=== PATIENT | female | born 1995 | race Caucasian/White ===

== ENCOUNTER 2023-10-04 10:28 | Outpatient (RCR) | payer BC, SELFPAY ==
[2023-10-04 10:45] VITALS: BP 131/75; PULSE 79
== END 2024-01-02 23:59 | disposition home or self-care (01) ==
LOC: ANHOBOP 10:28
PROVIDERS: Visit Provider Advanced Practice Midwife
DX: O16.3 Unspecified maternal hypertension, third trimester (principal); Z3A.36 36 weeks gestation of pregnancy
CPT/HCPCS: 59025

== ENCOUNTER 2023-10-17 17:23 | Inpatient (IN) | payer BC, SELFPAY ==
[2023-10-17] VITALS (48 sets, daily range): BP systolic 102–161; BP diastolic 70–93; PULSE 68–93; TEMP 36.9; O2SAT 97–100; BMI 27.3
[2023-10-17 18:09] LABS: Basophils Percent Auto 0.3 % (0.2-1.2); Eosinophils Absolute Auto 0.1 K/mm3 (0-0.3); Hematocrit 37.4 % (37.0-47.0); Hemoglobin 12.5 g/dL (12.0-15.0); Immature Granulocyte Absolute 0.11 K/mm3 (0.00-0.031); Immature Granulocyte Percent A 0.9 % (0-0.5); Lymphocytes Absolute Auto 2.31 K/mm3 (0.9-3.2); Lymphocytes Percent Auto 18.5 % (18.3-44.2); Mean Corpuscular HGB Conc 33.4 g/dl (32-36); Mean Corpuscular Hemoglobin 30.1 pg (26-34); Mean Corpuscular Volume 90.1 fl (80-100); Mean Platelet Volume 12.6 fl (7.4-10.4); Monocytes Absolute Auto 0.6 K/mm3 (0.1-0.6); Neutrophils Absolute Auto 9.3 K/mm3 (1.3-6.7); Neutrophils Percent Auto 74.3 % (45.5-73.1); Platelet Count Result 157 k/mm3 (150-375); Red Blood Count 4.15 M/mm3 (4.2-5.4); Red Cell Distribution Width 13.6 % (11.5-14.5); White Blood Count 12.5 K/mm3 (4.5-10.0)
[2023-10-17 18:18] LABS: Alanine Aminotransferase 16 U/L (6-35); Albumin Level 4.1 g/dL (3.5-5.1); Alkaline Phosphatase 186 U/L (38-126); Anion Gap 9 mmol/L (8-16); Aspartate Amino Transferase 25 U/L (14-36); Bilirubin,Total 0.4 mg/dL (0.2-1.3); Blood Urea Nitrogen 8 mg/dL (7-17); Calcium 9.5 mg/dL (8.4-10.2); Carbon Dioxide 21 mmol/L (22-30); Chloride 105 mmol/L (98-107); Estimated CRCL calculation 131 ml/min; Estimated Glomerular Filt Rate > 60; Glucose 108 mg/dL (65-110); Potassium 3.6 mmol/L (3.4-5.0); Sodium 135 mmol/L (137-145); Uric Acid 4.4 mg/dL (2.5-7.5)
[2023-10-17] MEDS: miSOPROStol 25 MCG TABLET PO (18:36)
[2023-10-17] MEDS: miSOPROStol 25 MCG TABLET 50 MCG PO (22:32)
[2023-10-18] VITALS (143 sets, daily range): BP systolic 121–161; BP diastolic 60–99; PULSE 71–128; RESP 20; TEMP 36.6–38; O2SAT 96–100
[2023-10-18] MEDS: LACTATED RINGERS 1,000 ML 125 ML IV CONT ×3 (02:41→12:16)
[2023-10-18] MEDS: OXYTOCIN 30 UNITS/NS 500 ML 30 UNITS/500 ML BAG 6 UNITS IV CONT (02:41)
--- NOTE | 2023-10-18 06:21 | WPDANESEPPF ---
Anes - Initial Pre Proc Eval Procedure: Epidural Date/Time: 10/18/23 06:21 Surgeon: Leia Velez MD Pre Op Diagnosis: Labor pain Pre Op Diagnosis: IOL Patient Data Age: 28 Gender: F Height: 1.68 m Weight: 77 kg Last Vital Signs Temp 36.6 C 10/18/23 02:39 Pulse 91 10/18/23 06:00 BP 144/88 H 10/18/23 06:00 Pulse Ox 99 10/17/23 22:30 O2 Del Method Room Air 10/17/23 17:41 Allergies Allergy/AdvReac Type Severity Reaction Status Date / Time gold Au 198 Allergy Itching Verified 10/09/23 13:57 Sulfa (Sulfonamide Allergy Hives Verified 10/09/23 13:57 Antibiotics) Paraphenylenediamine (PPD) Allergy Itching Uncoded 10/17/23 17:46 Home Medications Medication Instructions Recorded Confirmed Type doxylamine succinate 25 mg tablet 12.5 mg PO HS PRN Sleep 10/09/23 10/17/23 History (Unisom (doxylamine)) prenat.vits,gilles,klr-tjwj-djltg 1 tablet PO HS 10/09/23 10/17/23 History bisacodyl 5 mg tablet,delayed 5 mg PO HS 10/17/23 10/17/23 History release (Dulcolax (bisacodyl)) Laboratory Tests 10/17/23 10/17/23 10/17/23 17:48 17:48 17:48 WBC 12.5 H K/mm3 (4.5-10.0) RBC 4.15 L M/mm3 (4.2-5.4) Hgb 12.5 g/dL (12.0-15.0) Hct 37.4 % (37.0-47.0) MCV 90.1 fl (80-100) MCH 30.1 pg (26-34) MCHC 33.4 g/dl (32-36) RDW 13.6 % (11.5-14.5) Plt Count 157 k/mm3 (150-375) MPV 12.6 H fl (7.4-10.4) Immature Gran % (Auto) 0.9 H % (0-0.5) Neut % (Auto) 74.3 H % (45.5-73.1) Lymph % (Auto) 18.5 % (18.3-44.2) [place] % (Auto) 5.0 % (2.6-8.5) Eos % (Auto) 1.0 % (0-4.4) Baso % (Auto) 0.3 % (0.2-1.2) Lymph # (Auto) 2.31 K/mm3 (0.9-3.2) [place] # (Auto) 0.6 K/mm3 (0.1-0.6) Eos # (Auto) 0.1 K/mm3 (0-0.3) Baso # (Auto) 0.0 K/mm3 (0.0-0.1) Abs Immat Gran (auto) 0.11 H K/mm3 (0.00-0.031) Absolute Neuts (auto) 9.3 H K/mm3 (1.3-6.7) Absolute Nucleated RBC 0.0 K/mm3 (0.0-0.012) Nucleated RBC % 0.0 % (0.0-0.2) Sodium 135 L mmol/L Cancelled (137-145) Potassium 3.6 mmol/L Cancelled (3.4-5.0) Chloride 105 mmol/L (98-107) Carbon Dioxide Anion Gap BUN Creatinine Estim Creat Clear Calc Estimated GFR Glucose Uric Acid Calcium Total Bilirubin AST ALT Alkaline Phosphatase Total Protein Albumin RPR Blood Type Antibody Screen 10/17/23 10/17/23 10/17/23 17:48 17:48 17:48 WBC RBC Hgb Hct MCV MCH MCHC RDW Plt Count MPV Immature Gran % (Auto) Neut % (Auto) Lymph % (Auto) [place] % (Auto) Eos % (Auto) Baso % (Auto) Lymph # (Auto) [place] # (Auto) Eos # (Auto) Baso # (Auto) Abs Immat Gran (auto) Absolute Neuts (auto) Absolute Nucleated RBC Nucleated RBC % Sodium Potassium Chloride Cancelled Carbon Dioxide 21 L mmol/L Cancelled (22-30) Anion Gap 9 mmol/L Cancelled (8-16) BUN 8 mg/dL (7-17) Creatinine Estim Creat Clear Calc Estimated GFR Glucose Uric Acid Calcium Total Bilirubin AST ALT Alkaline Phosphatase Total Protein Albumin RPR Blood Type Antibody Screen
--- NOTE | 2023-10-18 07:32 | WPDOBADMIT ---
Obstetrics - Admit Note Admission Note: record reviewed. No pertinent additions to the history and/or any subsequent changes in the physical findings that are not consistent with the expected course of the were found. Additions to the history and/or subsequent changes in the physical findings follow. IOL, Gestational hypertension, denies paz, visual changes, epigastric pain, SVE 1.5/80/-1, AROM moderate amount of clear, odorless fluid, anticipate vaginal delivery
[2023-10-18] MEDS: fentaNYL CITRATE INJ (*CRX) 100 MCG/2 ML VIAL 50 MCG IV PUSH (12:16)
[2023-10-18 14:31] LABS: Rapid Plasma Reagin Non-Reactive (NonReactive)
[2023-10-18] MEDS: miSOPROStol 200 MCG TABLET 1000 MCG RECTAL (16:41)
[2023-10-18] MEDS: TRANEXAMIC ACID 1,000MG/ISO100 1,000 MG/100 ML BAG 200 MG IVPB (17:01)
[2023-10-18] MEDS: OXYTOCIN 30 UNITS/NS 500 ML 30 UNITS/500 ML BAG 125 UNITS IV CONT (17:01)
--- NOTE | 2023-10-18 17:02 | PM.OBPRVD ---
OB - Vaginal Delivery Note Procedure Delivery date: 10/18/23 Events: Gestational Hypertension Induction method: AROM and Per Misoprostol Protocol Delivery monitor: External FHT and Internal Uterine Route of delivery: Episiotomy description: None Laceration Description: Perineal - 1st Degree Delivery repair: vicryl Specimen: Yes Quantitative Blood Loss (ml): 450 Anesthesia type: Epidural Disposition: Floor [place] Baby Date of : 10/18/23 Time of : 16:27 Weeks of gestation at delivery: 37 gender: Female presentation: vertex position: Left Occiput Anterior Placenta delivery description: Manual Removal Cord Vessel Description: 3 Vessels score one minute: 8 score five minutes: 9 Narrative: cord pulled from placenta during removal, manually removed, fundus boggy, cytotec and pitocin, massage, TXA, bleeding now minimal, VSS, mother and baby skin to skin
[2023-10-18] MEDS: ceFAZolin 2 GM/D5W 50 ML 2 GM/50 ML BAG IVPB (17:31)
[2023-10-18] MEDS: ACETAMINOPHEN 325 MG TABLET 650 MG PO (18:06)
[2023-10-18] MEDS: WITCH HAZEL 40 PADS 1 PAD TOPICAL (19:23)
[2023-10-18] MEDS: BENZOCAINE 20% AER SPR (*SP) 56 GM CAN 1 SPRAY TOPICAL (19:23)
--- NOTE | 2023-10-18 19:36 | PC.NURSE ---
Patient transferred to post room #286 per wheelchair from labor and delivery. Support person present. Oriented to unit, room, information board, rooming in, admission packet and security measures. Patient verbalizes understanding.
[2023-10-19] VITALS (7 sets, daily range): BP systolic 125–144; BP diastolic 67–92; PULSE 67–102; RESP 14–20; TEMP 36.6–38.5; O2SAT 98–100
[2023-10-19] MEDS: SODIUM CHLORIDE 0.9% IV 250 ML 125 ML (00:59)
[2023-10-19] MEDS: AMPICILLIN 1 GM/NS 50 ML 1 GM/50 ML BAG IVPB ×6 (00:59→21:26)
[2023-10-19] MEDS: ACETAMINOPHEN 325 MG TABLET 650 MG PO ×2 (00:59→13:31)
[2023-10-19] MEDS: GENTAMICIN SULFATE INJ 385 MG in DEXTROSE 5% 100 ML 100 MG IVPB (01:40)
[2023-10-19 05:23] LABS: Basophils Percent Auto 0.2 % (0.2-1.2); Eosinophils Percent Auto 0.1 % (0-4.4); Hemoglobin 10.3 g/dL (12.0-15.0); Lymphocytes Absolute Auto 1.78 K/mm3 (0.9-3.2); Lymphocytes Percent Auto 9.2 % (18.3-44.2); Mean Corpuscular HGB Conc 33.2 g/dl (32-36); Mean Corpuscular Hemoglobin 30.4 pg (26-34); Mean Corpuscular Volume 91.4 fl (80-100); Mean Platelet Volume 12.4 fl (7.4-10.4); Monocytes Absolute Auto 1.1 K/mm3 (0.1-0.6); Monocytes Percent Auto 5.7 % (2.6-8.5); Neutrophils Absolute Auto 16.3 K/mm3 (1.3-6.7); Neutrophils Percent Auto 83.8 % (45.5-73.1); Platelet Count Result 130 k/mm3 (150-375); Red Blood Count 3.39 M/mm3 (4.2-5.4); Red Cell Distribution Width 13.7 % (11.5-14.5); White Blood Count 19.4 K/mm3 (4.5-10.0)
[2023-10-19] MEDS: MULTIVIT/MIN/PREN/FOL AC/IRON TABLET 1 TAB PO (08:10)
[2023-10-19] MEDS: DOCUSATE SODIUM 100 MG CAPSULE PO (08:10)
[2023-10-19] MEDS: IBUPROFEN 600 MG TABLET PO (08:10)
--- NOTE | 2023-10-19 08:49 | PM.OBPNVD ---
OB - PN: Subj Subjective Date/time seen: 10/19/23 08:49 Patient comments: no complaints, pain well controlled, incisional pain, tolerating diet and flatus present OB - PN: Obj Data Labs 10/19/23 05:11 10/17/23 17:48 Labs: Laboratory Results - last 24 hr 10/17/23 10/19/23 17:48 05:11 WBC 19.4 H RBC 3.39 L Hgb 10.3 L Hct 31.0 L MCV 91.4 MCH 30.4 MCHC 33.2 RDW 13.7 Plt Count 130 L MPV 12.4 H Immature Gran % (Auto) 1.0 H Neut % (Auto) 83.8 H Lymph % (Auto) 9.2 L [place] % (Auto) 5.7 Eos % (Auto) 0.1 Baso % (Auto) 0.2 Lymph # (Auto) 1.78 [place] # (Auto) 1.1 H Eos # (Auto) 0.0 Baso # (Auto) 0.0 Abs Immat Gran (auto) 0.20 H Absolute Neuts (auto) 16.3 H Absolute Nucleated RBC 0.0 Nucleated RBC % 0.0 RPR Non-reactive OB - PN A/P Plan day: 1 Plan: routine care Comments: No problems, routine care Time Spent With Patient Time: Total time spent is greater than 50% in coordination of care (as documented) at patient's floor/unit and/or counseling patient: Exam Const: General: comfortable, no acute distress and alert Resp: Effort & Inspection: normal respiratory effort Auscultation: no crackles, no rales and no rhonchi Cardio: Rate: regular rate Heart sounds: no click, no murmurs and no rubs GI: Inspection: non-distended GI Palp: No Tenderness to palpation present (GI) Auscultation: normal bowel sounds Other: Incision - CDI Extrem: General: normal to inspection, no pedal edema and no calf tenderness
--- NOTE | 2023-10-19 10:16 | PC.NURSE ---
[phone] Introductions were made, then consulted with patient to assess needs related to . Mother led the conversation with her?plans to feed?her infant and the?experience so far. Encouraged understanding of the benefits of skin to skin (demonstrating unwrapping and placing upright on her chest), stimulating with massage touch, changing positions to encourage wakefulness, how to watch for early feeding cues, responsive feeding, feeding on demand (aiming for 8-12 times in 24 hours, about every 2-3 hours), milk production, building/maintaining a milk supply, duration of feeding, signs of adequate intake/output and how to record on the feeding sheet. Mother brought in her own nipple shield, manual pump, breast cream, and silverettes. We discussed the risks and benefits along with reviewing comfort measures of healing with a warm, wet washcloth to rinse breast, then leave open to air-dry, good handwashing when or touching the breast/nipples to prevent infection. Mother voiced understanding of skin to skin, stimulating with massage touch, responsive feedings, hand expressed colostrum, talking to infant to encourage if it has been 2 -2.5 hours since the start of the last , to call if infant does not latch, difficulty waking infant, or if there is discomfort with . Resources used for education were facilitated with the visual educational handouts, tool, feeding sheet, mom and baby guide Inpatient/outpatient resources provided with feeding sheet, name written on the communication board, and the mom/baby guide. Mother voiced understanding of information, demonstrated learning and will call if there is a request for assistance.
--- NOTE | 2023-10-19 13:43 | WPDANLDPN2 ---
Anes-Prog Note L&D Date/Time: 10/19/23 13:43 Comfortable throughout: labor and delivery Neuraxial method: epidural Epidural/Spinal procedure site: clean & non-tender Neuro status: Neuro function grossly intact. Cardiovascular status: normal Respiratory status: normal Airway patency: baseline Mental status: baseline Post-Op hydration status: normal Vital Signs: Last Vital Signs Temp 37.0 C 10/19/23 12:04 Pulse 71 10/19/23 12:04 Resp 16 10/19/23 12:04 BP 139/67 10/19/23 12:04 Pulse Ox 99 10/19/23 12:04 O2 Del Method Room Air 10/17/23 17:41 Pain score (VAS): 09/29 I/O: Intake & Output 10/18/23 10/19/23 10/19/23 23:59 07:59 15:59 Intake Total 1300 1300 50 Output Total 535 2050 Balance 765 -750 50 Post-procedural complaints: none Patient feedback: Patient satisfied with anesthetic care.
[2023-10-19 15:02] LABS: Gentamicin Random 0.7 ug/mL (5.0-12.0)
--- NOTE | 2023-10-19 16:00 | PC.NURSE ---
[id number] Purposefully rounded to assess for needs. Mother is showering. is yxtq-zq-bhli with the father. Encouraged parents to call for assistance. [phone] Checked in with mother and had voided twice in the last 10 minutes. 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 Mother understands the importance of atwa-nc-zalm and attempting to breastfeed when feeding cues are demonstrated. [phone] Mother is szfy-qi-ikia with her infant that is not yet 24 hours old. Mother has fed expressed breast milk with syringe at 1300 earlier with father. Infant is sleepy and reluctant to breastfeed at this time. Another wet diaper was changed. Discussed with mother the pie demonstration as to review what is assessed to know infant is getting enough food to eat. Infant meets the requirements at this time. Mother voiced understanding of the information.
[2023-10-20] MEDS: AMPICILLIN 1 GM/NS 50 ML 1 GM/50 ML BAG IVPB (01:22)
[2023-10-20] MEDS: IBUPROFEN 600 MG TABLET PO ×3 (01:25→22:53)
[2023-10-20 02:20] VITALS: BP 134/82; PULSE 82; TEMP 36.8
[2023-10-20 04:40] VITALS: BP 135/89; PULSE 77; TEMP 36.1
--- NOTE | 2023-10-20 07:51 | PM.OBPNVD ---
OB - PN: Subj Subjective Date/time seen: 10/20/23 07:51 Interval history: pp day 2 baby , has lost weight, may stay another night will d/c to no care bed no current complaints OB - PN: Obj Data Labs 10/19/23 05:11 10/17/23 17:48 Labs: Laboratory Results - last 24 hr 10/19/23 13:51 Random Gentamicin 0.7 L OB - PN A/P Plan day: 2 Plan: routine care and discharge home Time Spent With Patient Time: Total time spent is greater than 50% in coordination of care (as documented) at patient's floor/unit and/or counseling patient: Review of Systems Review of Systems: All systems reviewed & are unremarkable except as noted in HPI and below Exam Const: General: cooperative, healthy appearing and comfortable Resp: Effort & Inspection: normal respiratory effort Cardio: Rate: regular rate GI: Other: soft Skin: General skin exam: normal color Neuro: General: patient oriented x3 Extrem: Right lower extremity: normal to inspection Left lower extremity: normal to inspection Psych: Appearance: grossly normal
--- NOTE | 2023-10-20 07:53 | PM.OBDSVD ---
DS: Admitting Diagnosis Discharge Date 10/20/23 Admitting Diagnosis IOL, gestational HTN DS: Discharge Diagnosis Discharge Diagnosis (1) Vaginal delivery: Code(s): O80 - Encounter for full-term uncomplicated delivery Status: Acute OB - DS: Summary OB Procedures : None OB Procedures Intrapartum: Spontaneous Vag Delivery OB Procedures: : None Peripartum Data Laceration Description: Perineal - 1st Degree Episiotomy description: None Time Spent with Patient Time attestation: Total time spent providing and/or coordinating discharge services: DS: Data Data Completed and Pending Pending studies at discharge: Pending at discharge 10/18/23 17:09 Surgical [PTH] Routine Labs on day of discharge: Labs from last 24 hours 10/19/23 13:51 Random Gentamicin 0.7 L Discharge Plan Discharge Attending physician on discharge: Leia Velez Discharging Clinician: Reshma Olea Patient Disposition: Home, Self-Care Activity: pelvic rest Diet: regular Patient Instructions: Antibiotic Form Stand Alone Forms: General Discharge Information Follow-up/Referrals: Reshma Olea CNM [Certified Nurse Bunch Maker Hand] - 4 Weeks Discharge Medications: New ibuprofen 600 mg Tablet 600 mg PO Q6H PRN (Reason: Cramping) Qty: 30 0RF Continued #2 Tablet 1 tablet PO HS Discontinued Unisom (doxylamine) 25 mg Tablet 12.5 mg PO HS PRN (Reason: Sleep) bisacodyl [Dulcolax (bisacodyl)] 5 mg Tablet,Delayed Release (Dr/Ec) 5 mg PO HS Date of admission: 10/17/23 17:23 Primary Care Provider: Jennifer Zepeda Admitting Provider: Leia Velez Attending physician on admission: Leia Velez Condition: Stable
[2023-10-20 08:00] VITALS: BP 152/87; PULSE 64; RESP 16; TEMP 37.1; O2SAT 100
--- NOTE | 2023-10-20 10:58 | PC.NURSE ---
Breast pump provided due to mother asking for a pump and baby is not feeding well at the breast. Instructions given on cleaning, care, usage, that there should be no pain, pumping schedule for milk production, collection, and storage of human milk. Patient was assessed for correct placement, flange size, to pump for comfort and nipple stretching/stimulation for adequate milk production every 3 hours (8 times in 24 hours) 1-2 times at night. Parents are encouraged to record the pumping schedule on the feeding sheet.?Mother voiced understanding of the education shared along with mom/baby guide and the pump measurement, flange fit handout for additional resource information.
[2023-10-20 12:12] VITALS: BP 144/74; PULSE 80; RESP 16; TEMP 37.1; O2SAT 100
--- NOTE | 2023-10-20 15:30 | PC.NURSE ---
PT introductions made and plan of care discussed per post , pain management, breast pumping, daily care activities and pending discharge to home. PT and spouse both recipients of such instructions and no barriers to learning identified at this time. PT received such instructions per one to one discussion, mom baby care guide and demonstrations this shift. PT verbalized understanding of such care.
[2023-10-20] MEDS: ACETAMINOPHEN 325 MG TABLET 650 MG PO ×2 (16:08→22:53)
[2023-10-20] MEDS: DOCUSATE SODIUM 100 MG CAPSULE PO (16:08)
[2023-10-20] MEDS: MULTIVIT/MIN/PREN/FOL AC/IRON TABLET 1 TAB PO (16:08)
--- NOTE | 2023-10-20 16:59 | PC.NURSE ---
[id number] Purposefully rounded to assess for needs. We discussed the plan of care for today encouraging bfsj-dl-mcme, protecting the milk supply, while working with infant to latch. Mother states infant has been latching but not after a few sucks. Mother has multiple bruising mckeon on her areola that she say were obtained the first night, then she mentioned that she attempted with the nipple shield, then pinching injuries occurred so she stopped using the nipple shield. Mother has firm, smooth breast with nipples that invert slightly dimpling in the middle. Mother consented to electric pumping earlier this morning to increase efficiency. Reviewed comfort measures of healing with a warm, wet washcloth to rinse breast, then leave open to air-dry, good handwashing when or touching the breast/nipples to prevent infection. [id number] Encouraged understanding of the benefits of skin to skin (demonstrating unwrapping and placing upright on her chest), stimulating with massage touch, changing positions to encourage wakefulness, how to watch for early feeding cues, responsive feeding, feeding on demand (aiming for 8-12 times in 24 hours, about every 2-3 hours), milk production, building/maintaining a milk supply, duration of feeding, signs of adequate intake/output and how to record on the feeding sheet. Mother works well with her infant with encouragement, education, and is familiar with baby friendly practices and [employer] to education. assessment does indicate a lower tongue frenulum is a bit tight, however; forking of the tongue is not visualized. Reviewed positioning and ear, shoulder, hip alignment, supporting the breast to facilitate a deep latch, asymmetrical latch (off-center), leading with the chin with a big, open, wide gape and body close to mother. After was mkzo-qh-zkhu and feeding cues were visualized infant attempted to latch to the breast first to the left using cross cradle, then football on the right. attempts, takes a few sucks and doesn't maintain. Reviewed behavior based on EGA. Pumping breast shield flange assessed and switched to 21mm. Reviewed care, usage, and pumping schedules to improve milk production. Mother demonstrates understanding of skin to skin, stimulating with massage touch, responsive feedings, hand expressed colostrum, talking to infant to encourage if it has been 2 -2.5 hours since the start of the last , to call if does not latch, or if there is discomfort with . Resources used for education were facilitated with the visual educational handouts, tool, mom and baby guide. [id number] Purposefully rounded to assess for needs and mother shared that she had attempted to breastfeed on her own, pumped her breast, and syringe fed 2mls of EBM. Mother has her lunch and is encouraged to eat and rest. [phone] Father of baby is holding infant. Mother pumped and 2.5mls of EBM was collected and syringe fed to . 1515 [phone] 1535 Mother pumped and parents syringe fed infant another 1ml of EBM. Infant was weighed and has lost 10.10% and will stay the night. Dr. Perez discussed with the parents the weight and POC. Mother is encouraged to call her supportive, skilled Primary RN for assistance through the evening, pump again every 2-3 hours, until night time, then get a stretch of sleep tonight stimulating breast in 4-5 hours one time during the night. Primary RN is in the room supporting the plan of care.
[2023-10-20 21:45] VITALS: BP 156/76; PULSE 72; RESP 18; TEMP 36.8; O2SAT 98
--- NOTE | 2023-10-20 23:30 | PC.NURSE ---
Patient discharged to a no care bed. Supplies given, discharge packet reviewed.
[2023-10-23 16:14] VITALS: BP 128/84; PULSE 73; RESP 18; TEMP 37; O2SAT 99
== END 2023-10-20 23:30 | disposition home or self-care (01) | DRG 807 ==
LOC: ANHLDR 17:27 → ANHOB2 10-18 19:37
PROVIDERS: Advanced Practice Midwife; Admitting Provider Obstetrics & Gynecology; Visit Provider Obstetrics & Gynecology
DX: O13.4 Gestational [pregnancy-induced] hypertension without significant proteinuria, complicating childbirth (principal); Z37.0 Single live birth; O70.0 First degree perineal laceration during delivery; Z3A.37 37 weeks gestation of pregnancy
CPT/HCPCS: 36415; 80053; 80170; 84550; 85025; 86592; 86850; 86900; 86901; 88307; A9270; J0290; J0690; J1580; J2590; J2795; J3010; J7050; J7120

== ENCOUNTER 2025-01-23 21:41 | Emergency (ER) | payer BC, SELFPAY ==
--- OUTSIDE RECORDS SUMMARY | 2025-01-23 21:43 | XMS_ITS | Encounter Summary ---
Author Organization [facility] Address [address] [place] [address] Phone Care Team Providers Care Home Sales Consultant Name Role Phone Lamar Alberts APRN, CNP Unavailable Dusty Moody MD Unavailable [phone] Jennifer Zepeda APRN, CNP Primary Care P rovider Reason for Visit * Reason Comments Medication Refill Encounter Details Date Type Department Care Team (Late st Contact Info) Description 05/19/2020 Refill [facility] - Primary Care - [address] [place] [address] Jennifer Zepeda APRN, CNP [address] [place] [address] Medication Refill Social History Tobacco Use Types Packs/Day Years Used Date Smoking Tobacco: Never Smokeless Tobacco: Never Alcohol Use Standard Drinks/Week Comments Yes 0 (1 standard drink = 0.6 oz pur e alcohol) every once and awhile PHQ-2 Answer Date Recorded Total Score - Questions 1-9 0 02/2020 Sexually Active Control Partners Comments Yes Pill, Condom Comments No Sex and Gender Information Value Date Recorded Sex Assigned at Not on file Legal Sex Female 8:25 PM CDT Gender Identity Not on file Sexual Orientation Not on file COVID-19 Exposure Response Date Recorded In the last month, have you been in contact with someone who was confirmed or suspected to have Coronavirus / COVID-19? Yes 05/20/2020 11:51 AM CDT documented as of this encounter Miscellaneous Notes * Telephone Encounter - Shruthi Ambrose RN - 05/21/2020 8:00 AM CDT Routing to PCP for review r/t PRN medication. Requested Prescriptions Pending Prescriptions Disp Refills SUMAtriptan (IMITREX) 25 MG Tablet [Pharmacy Med Name: SUMATRIPTAN SUCC 25 MG TABLET] 9 Tab 0 Sig: TAKE 1 TAB AT ONSET OF MIGRAINE. MAY REPEAT IN 2 HOURS IF NEEDED Neurology: Migraine Therapy Passed - 05/19/2020 12:12 AM Passed - Valid encounter within last 12 months Past Office Visits Recent Outpatient Visits 1 year ago General medical examination (Adult) [facility] - Primary Care Arlene Galvan February, Upcoming Appointments PHOTOGRAPHER MODEL - Recent and Past Visits Recent Visits Date Type Provider Dept 04/25/20 Office Visit Jennifer Zepeda, BREAD AND PASTRY BAKER, INTERVENTION SPECIALIST [facility] Showing recent visits within past 460 days with a meds authorizing provider and meeting all other requirements Future Appointments No visits were found meeting these conditions. Showing future appointments within next 90 days with a meds authorizing provider and meeting all other requirements documented in this encounter Plan of Treatment Not on file documented as of this encounter Visit Diagnoses Diagnosis Intractable episodic tension-type headache Episodic tension type headache documented in this encounter Additional Health Concerns Infection Onset Date Last Indicated Resolved Time COVID - 19 05/20/2020 05/20/2020 05/23/2020 9:11 AM CDT COVID - 19 04/10/2021 04/10/2021 04/11/2021 7:01 AM CDT COVID - 19 Confirmed 04/10/2021 04/10/2021 021 12:16 AM CDT Assessment Noted Time PHQ-9 Depression Total Score: 0 04/25/20 20 10:00 AM CDT documented as of this encounter Care Teams Home Sales Consultant Relationship Specialty Start Date End Date HuJennifer lance APRN, INTERVENTION SPECIALIST [address] [place] [address] PCP - General Advanced Practice Nurse 04/25/20 Lamar Alberts APRN, INTERVENTION SPECIALIST [address] [place] [address] Consulting Physician Family Medicine 08/03/18 Dusty Moody MD [address] [place] [address] Consulting Physician Dermatology 08/03/18 documented as of this encounter
--- OUTSIDE RECORDS SUMMARY | 2025-01-23 21:43 | XMS_ITS | Referral Summary ---
Author Organization [facility] Address [address] [place] [address] Care Team Providers Care Gas Singer Name Role Phone Anjali Olea MD Primary Care Provider + Allergies Active Allergy Reactions Criticality Noted Date Comments Gold Keratinate Unknown 10/27/2021 Sulfa (Sulfonamide Antibiotics) Hives,Rash Medium 09/21 Medications ondansetron (ZOFRAN) 4 mg tablet 04/19/2023 Active vit 13-hslk-gxxrr-d paz 27mg iron- 800 mcg-250 mg capsule Take by mouth Active docusate sodium (COLACE) 100 mg capsuleIndicati ons:constipatio n Take 1 capsule (100 mg total) by mouth 2 (two) times a day Active doxylamine (UNISOM) 25 mg tablet Take 1 tablet (25 mg total) by mouth nightly as needed for sleep Active magnesium gluconate 200 mg tabletIndicatio ns:hypomagnesem ia 1 tablet (200 mg total) Active Active Problems Problem Noted Date Diagnosed Date Bacterial vaginosis 05/03/2023 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 Pruritus of vagina 05/03/2023 Ganglion, left wrist 05/03/2023 Ganglion, right wrist 08/24/2018 Acute sinusitis 10/09/2009 Asthma 10/09/2009 Social History Tobacco Use Types Packs/Day Years Used Date Smoking Tobacco: Never Tobacco Cessation:Counseling Given: Not Answered Personal Safety Answer Date Recorded Getting School Help Needed Not on file 09/17 Comments Unknown Sex and Gender Information Value Date Recorded Sex Assigned at Not on file Legal Sex Female 2:46 AM 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
--- OUTSIDE RECORDS SUMMARY | 2025-01-23 21:43 | XMS_ITS | Clinical Summary ---
Author Organization [facility] Address [address] [place] [address] Care Team Providers Care Senior Front End Engineer Name Role Phone Anjali Olea MD Primary Care Provider + Allergies Active Allergy Reactions Criticality Noted Date Comments Gold Keratinate Unknown 10/27/2021 Sulfa (Sulfonamide Antibiotics) Hives,Rash Medium 09/21 Medications ondansetron (ZOFRAN) 4 mg tablet 04/19/2023 Active vit 04-rybq-zfqrs-d paz 27mg iron- 800 mcg-250 mg capsule [...] on file Legal Sex Female 2:46 AM PRINCIPAL RESEARCH ECONOMIST Gender Identity Not on file Sexual Orientation Not on file Obstetrics History Plan of Treatment Health Maintenance Due Date Last Done Comments Cervical Cancer Screening 1995 Depression Screening 1995 Hepatitis C Screening 1995 Pneumococcal vaccine <65 (2 of 2 - PCV) 11/14/2010 11/14/2009 Hepatitis B Screening 2013 Regular Well Visit/Exam 18-64 2013 Covid-19 Vaccine (3 - season) 2024 10/25/2021, 09/26/2021 Influenza Vaccine (#1) 2024 , 07/27/2018, 06/29/2009, Additional history exists DTaP/Tdap/Td Vaccine (8 - Td or Tdap) 08/12/2031 08/12/2021, 11/14/2009, 03/04/2001, Additional history exists Varicella Vaccines Completed 2021, 08/16/1996 HPV Vaccines Aged Out No longer eligi ble based on patient's age to complete this topic Insurance [employer] OOS [employer] OOS Care Teams Senior Front End Engineer Relationship Specialty Start Date End Date Anjali Olea MD PCP - General 11/19/10
--- OUTSIDE RECORDS SUMMARY | 2025-01-23 21:43 | XMS_ITS | Data Portability ---
Author Organization [facility] Address [address] [place] [address] [place] [address] Care Team Providers Care Sales Utility Representative Name Role Phone ONESIMO UGALDE Primary Care Provider [phone] Assessment Encounter Date Assessment Date Assessment LastModified by Organization Details LastModified Time 12/29/2024 12/29/2024 Patient is _15__weeks . Discussed plan. Not available 12/29/2024 15:43:13 Plan of Treatment Reminders Order Date Submit Date Provider Last Modified By Organization Details Last Modified Time Details Appointments MED CHECK 2024 01:30P M Reshma Olea CNM Not available Not available Not available U/S OB BASELIN E 2024 01:30P M ULTRASOUND Not available Not available Not available OB ROUTINE 2024 02:30P M Reshma Olea CNM Not available Not available Not available Lab None recorde d. Referral None recorde d. Procedures None recorde d. Surgeries None recorde d. Imaging US, obstetr ic, nuchal translu cency 2024 025 [email or web address] [place], [address], [place], [address], 12/04/2024 21:27:25 US, obstetr ic, 1st trimest er 2024 025 [email or web address], [address], [place], [address], 11/06/2024 21:32:40 Medication Orders ondanse nancy 8 mg disinte grating tablet 2024 025 [id number], [address], [place], [id number], 11/06/2024 16:15:38 Patient TargetsNo targets recorded. Patient InstructionsNo instructions recorded. Reason for Referral None Reported. Results Created Date Observation Date Name Description Value Unit Range Abnormal Flag Note LastModifiedBy Organization Detail LastModifiedTime 12/11/19 25 12/10/2024 [UNIT Y] ANEUP LOIDY NIPT fraction 16.8% normal Not Available [facility] [address] [place] [address], [place], [address], 12/10/2024 11:26:45 12/11/19 25 12/10/2024 [UNIT Y] ANEUP LOIDY NIPT 22Q11.2 microdeletio n LOW RISK <1 in 10,000 normal Not Available [facility] [address] [facility], [place], [address], 12/10/2024 11:26:45 12/11/19 25 12/10/2024 [UNIT Y] ANEUP LOIDY NIPT sex chromosome aneuploidy NOT DETECT ED normal Not Available [facility] [address] [facility], [place], [address], 12/10/2024 11:26:45 12/11/19 25 12/10/2024 [UNIT Y] ANEUP LOIDY NIPT monosomy X LOW RISK <1 in 10,000 normal Not Available [facility] [address] [facility], [place], [address], 12/10/2024 11:26:45 12/11/19 25 12/10/2024 [UNIT Y] ANEUP LOIDY NIPT trisomy 13 LOW RISK <1 in 10,000 normal Not Available [facility] [address] [facility], [place], [address], 12/10/2024 11:26:45 12/11/19 25 12/10/2024 [UNIT Y] ANEUP LOIDY NIPT trisomy 18 LOW RISK <1 in 10,000 normal Not Available [facility] [address], [place], [address], 12/10/2024 11:26:45 12/11/19 25 12/10/2024 [UNIT Y] ANEUP LOIDY NIPT trisomy 21 LOW RISK <1 in 10,000 normal Not Available [facility] [address], [place], [address], 12/10/2024 11:26:45 12/11/19 25 12/10/2024 [UNIT Y] ANEUP LOIDY NIPT sex MALE normal Not Available [facility] [address], [place], [address], 12/10/2024 11:26:45 12/11/19 25 12/10/2024 [UNIT Y] ANEUP LOIDY NIPT gestation SINGLE TON normal Not Available [facility] [address] , [place], [address], 12/10/2024 11:26:45 12/11/19 25 12/10/2024 [UNIT Y] ANEUP LOIDY NIPT for detailed report, see pdf See PDF normal Not Available [facility] [address] , [place], [address], 12/10/2024 11:26:45 11/06/19 25 11/06/2024 CT/GC AND TRICH OMONA S VAGIN VLAD (RRNA ), URINE chlamydia trachomatis, PCR Negati ve negati ve Not Available [facility] (Lab) [address] [facility], [place], [address], 11/07/2024 13:41:41 11/06/19 25 11/06/2024 CT/GC AND TRICH OMONA S VAGIN VLAD (RRNA ), URINE neisseria gonorrhoeae, PCR Negati ve negati ve Not Available [facility] (Lab) [address], [place], [address], 11/07/2024 13:41:41 11/06/19 25 11/06/2024 CT/GC AND TRICH OMONA S VAGIN VLAD (RRNA ), URINE trichomonas vaginalis ribosomal RNA (rrna) Negati ve negati ve Colle cted by offic e staff . Not Available [facility] (Lab) [address], [place], [address], 11/07/2024 13:41:41 12/05/19 25 12/04/2024 CBC W/DIF F WBC 10.9 10'3/ uL 3.5-10 .5 high Not Available [facility] (Lab) [address], [place], [address], 12/05/2024 14:57:17 12/05/19 25 12/04/2024 CBC W/DIF F RBC 4.12 10'6/ uL (based on docume nted legal sex) 3.80-5 .20 Not Available [facility] (Lab) [address], [place], [address], 12/05/2024 14:57:17 12/05/19 25 12/04/2024 CBC W/DIF F HGB 12.3 g/dL (based on docume nted legal sex) 11.6-1 5.4 Not Available [facility] (Lab) [address], [place], [address], 12/05/2024 14:57:17 12/05/19 25 12/04/2024 CBC W/DIF F HCT 37.7 % (based on docume nted legal sex) 34.0-4 5.0 Not Available [facility] (Lab) [address], [place], [address], 12/05/2024 14:57:17 12/05/19 25 12/04/2024 CBC W/DIF F MCV 91.5 fL 80.0-9 9.0 Not Available [facility] (Lab) [address], [place], [address], 12/05/2024 14:57:17 12/05/19 25 12/04/2024 CBC W/DIF F MCH 29.9 pg 27.0-3 4.0 Not Available [facility] (Lab) [address], [place], [address], 12/05/2024 14:57:17 12/05/19 25 12/04/2024 CBC W/DIF F MCHC 32.6 g/dL 32.0-3 5.5 Not Available [facility] (Lab) [address], [place], [address], 12/05/2024 14:57:17 12/05/19 25 12/04/2024 CBC W/DIF F RDW 13.6 % 11.0-1 5.0 Not Available [facility] (Lab) [address], [place], [address], 12/05/2024 14:57:17 12/05/19 25 12/04/2024 CBC W/DIF F plt 239 10'3/ uL 150-40 0 Not Available [facility] (Lab) [address], [place], [address], 12/05/2024 14:57:17 12/05/19 25 12/04/2024 CBC W/DIF F MPV 11.9 fL 8.8-12 .1 Not Available [facility] (Lab) [address], [place], [address], 12/05/2024 14:57:17 12/05/19 25 12/04/2024 CBC W/DIF F neutrophils 73.0 % 34.0-7 3.0 Not Available [facility] (Lab) [address], [place], [address], 12/05/2024 14:57:17 12/05/19 25 12/04/2024 CBC W/DIF F lymphocytes 19.2 % 15.0-5 0.0 Not Available [facility] (Lab) [address], [place], [address], 12/05/2024 14:57:17 12/05/19 25 12/04/2024 CBC W/DIF F monocytes 5.6 % 1.0-15 .0 Not Available [facility] (Lab) [address] [facility], [place], [address], 12/05/2024 14:57:17 12/05/19 25 12/04/2024 CBC W/DIF F eosinophils 1.3 % 0.0-8. 0 Not Available [facility] (Lab) [address] [facility], [place], [address], 12/05/2024 14:57:17 12/05/19 25 12/04/2024 CBC W/DIF F basophils 0.4 % 0.0-2. 0 Not Available [facility] (Lab) [address] [facility], [place], [address], 12/05/2024 14:57:17 12/05/19 25 12/04/2024 CBC W/DIF F immature granulocytes 0.5 % no define d refere nce range Immat ure Granu locyt es (IG) repre sents autom ated enume ratio n of Metam yeloc ytes, Myelo cytes and Promy elocy andrez when IG is < 5%. Blast s are not inclu ded in IG and repor lamar separ ately if prese nt. Not Available [facility] (Lab) [address] [facility], [place], [address], 12/05/2024 14:57:17 12/05/19 25 12/04/2024 CBC W/DIF F absolute neutrophils 8.0 10'3/ uL 1.5-8. 0 Not Available [facility] (Lab) [address] [facility], [place], [address], 12/05/2024 14:57:17 12/05/19 25 12/04/2024 CBC W/DIF F absolute lymphocytes 2.1 10'3/ uL 1.0-4. 0 Not Available [facility] (Lab) [address], [place], [address], 12/05/2024 14:57:17 12/05/19 25 12/04/2024 CBC W/DIF F absolute monocytes 0.6 10'3/ uL 0.2-1. 0 Not Available [facility] (Lab) [address], [place], [address], 12/05/2024 14:57:17 12/05/19 25 12/04/2024 CBC W/DIF F absolute eosinophils 0.1 10'3/ uL 0.0-0. 6 Not Available [facility] (Lab) [address], [place], [address], 12/05/2024 14:57:17 12/05/19 25 12/04/2024 CBC W/DIF F absolute basophils 0.0 10'3/ uL 0.0-0. 3 Not Available [facility] (Lab) [address], [place], [address], 12/05/2024 14:57:17 12/05/19 25 12/04/2024 CBC W/DIF F absolute immature granulocytes 0.1 10'3/ uL 0.00-0 .10 Refer ence range s for nonbi nary/ inter sex or unspe cifie d gende r patie nts have not been estab lishe d. Pleas e refer to the [facility] table for range s estab lishe d for cisge nder patie nts and evalu ate in the clini gilles taye xt of the indiv idual patie nt: https ://rip gutierrez book. nm.or g/gen derx Not Available [facility] (Lab) [address], [place], [address], 12/05/2024 14:57:17 12/05/19 25 12/04/2024 TYPE/ RH/SC REEN ABO/Rh type B POS Not Available [facility] (Lab) [address], [place], [address], 12/05/2024 14:57:17 12/05/19 25 12/04/2024 TYPE/ RH/SC REEN antibody screen NEG Not Available [facility] (Lab) [address] [facility], [place], [address], 12/05/2024 14:57:17 12/05/19 25 12/04/2024 TYPE/ RH/SC REEN exp date 2024 23:59 Not Available [facility] (Lab) [address] [facility], [place], [address], 12/05/2024 14:57:17 12/05/19 25 12/04/2024 HEPAT ITIS C ANTIB EDDIE SCREE N, REFLE X TO CONFI RMATI ON hepatitis C antibody Non-re active non-re active Antib odies to HCV Not Detec lamar, does not exclu de the possi bilit y of expos ure to HCV. Not Available [facility] (Lab) [address] [facility], [place], [address], 12/05/2024 14:57:18 12/05/19 25 12/04/2024 RUBEL LA IGG ANTIB EDDIE, QUANT rubella antibodies, IgG Reacti ve reacti ve Not Available [facility] (Lab) [address] [place], [address], 12/05/2024 14:57:18 12/05/19 25 12/04/2024 RUBEL LA IGG ANTIB EDDIE, QUANT rubella antibodies, IgG quant 19.1 IU/mL >=10 Non-r eacti ve (Non- Immun e) <10 IU/mL React alysha (Immu ne) > or = 10 IU/mL Not Available [facility] (Lab) [address] [place], [address], 12/05/2024 14:57:18 12/05/19 25 12/04/2024 HEPAT ITIS B SURFA CE ANTIG EN hepatitis B surface antigen Non-re active non-re active This assay was perfo rmed using [employer] ratio n reage nts and test kits. Value s obtai piedad with other assay metho ds or kits canno t be used inter santos eably . Not Available [facility] (Lab) [address], [place], [address], 12/05/2024 14:57:19 12/05/19 25 12/04/2024 HIV 1/2 ANTIG EN/AN TIBOD Y, REFLE X CONFI RMATI ON HIV antigen/anti body Nonrea ctive nonrea ctive HIV-1 antig en and HIV-1 /HIV- 2 antib odies were not detec lamar. No labor atory evide nce of HIV infec tion. Not Available [facility] (Lab) [address], [place], [address], 12/05/2024 14:57:19 12/05/19 25 12/04/2024 HEMOG LOBIN A1C hemoglobin A1C 5.2 % 4.0-5. 6 The Ameri can [employer] i[employer] n recom mends that a prima ry goal of thera py shoul d be a HBA1C of < 7% and that physi cians shoul d reeva luate the treat ment regim en in patie nts with HBA1C value s consi stent ly > 8%. <5.7% Helga l 5.7 - 6.4% Incre ased risk for diabe andrez >=6.5 % Diagn ostic of diabe andrez <7.0% Goal of thera py >8.0% Actio n sugge sted Not Available [facility] (Lab) [address], [place], [address], 12/05/2024 14:57:20 12/05/19 25 12/04/2024 RPR SCREE N, REFLE X TITER /CONF IRMAT ION RPR qualitative Nonrea ctive nonrea ctive Not Available [facility] (Lab) [address] [facility], [place], [address], 12/05/2024 14:57:20 11/06/19 25 11/06/2024 US, obste tric, 1st trime ster No observ ation record ed. [email or web address] [place] [address], [place], [address], 11/06/2024 18:28:25 11/06/19 25 11/06/2024 US, obste tric, 1st trime ster No observ ation record ed. [email or web address], [place], [address], 11/06/2024 20:58:33 12/05/19 25 12/04/2024 US, obste tric, nucha l trans lucen cy No observ ation record ed. [email or web address] [place] [address], [place], [address], 12/04/2024 15:50:41 12/05/19 25 12/04/2024 US, obste tric, nucha l trans lucen cy No observ ation record ed. [email or web address], [place], [address], 12/04/2024 21:09:41 Result Notes None recorded. Problems Name Problem SNOMED Code Status Onset Date Resolution Date Notes Provider Name and Address Organization Details Recorded Time Pregnanc y 28822172 Completed 202210/29/2023 Maryanne booth, [facility] 5 15:42:28 Mixed anxiety and depressi ve disorder 685830818 Active 2023 Alisa booth, [facility] 4 14:41:33 Pregnanc y 50959908 Active 2024 Maryanne booth, [facility] 5 15:42:28 Pregnanc y-induce d hyperten odette 22216099 Active history of GHTN - Baseline labs at 20wks Viviana booth, [facility] 5 11:34:10 Pregnanc y-induce d hyperten odette 79472696 Active history of GHTN - Baseline labs at 20wks Viviana Zoltan booth [facility] 5 11:34:10 Problem Notes None recorded. Procedures Surgical History Date Name Laterality Status Provider Name and Address Organization Details Recorded Time 4 Date of Last Pap Smear completed Alisa Padilla [facility] 06/05/2024 12:12:50 4 Date of Last Mammogram completed Alisa Padilla [facility] 06/05/2024 12:13:44 Imaging Results Imaging Date Name Status LastModified by Organization Details LastModified Time 11/06/2024 US, obstetric, 1st trimester completed [email or web address] [place] [address], [place], [address], 11/06/2024 18:28:25 11/06/2024 US, obstetric, 1st trimester completed [email or web address], [place], [address], 11/06/2024 20:58:33 12/04/2024 US, obstetric, nuchal translucency completed [email or web address], [place], [address], 12/04/2024 15:50:41 12/04/2024 US, obstetric, nuchal translucency completed [email or web address], [place], [address], 12/04/2024 21:09:41 Procedure Notes None recorded. Medical Equipment None Reported. Allergies Allergen ID Allergen Name Allergen Category Reaction Reaction Severity Criticality Documentation Date Start Date Code Code System Note Provider Name and Address Organization Details Recorded Time Substance with sulfonami de structure and antibacte rial mechanism of action (substanc e) medicatio n hives Not available Not available 01/29/2023 [id number] 8000 SNOMED Dania Samuel booth [facility] 3 15:02:48 44694 gold Au 198 environme nt itching Not available Not available 01/29/2023 [id number] UNK Dania Baker null, [facility] 3 15:02:48 Medications Name Sig Start Date Stop Date Status Note LastModified by Organization Details LastModified Time dicloxacill in 500 mg capsule TAKE 1 CAPSULE BY MOUTH EVERY 6 HOURS FOR 10 DAYS 11/30 completed Not Available Not Available Not Available azithromyci n 250 mg tablet TAKE 2 TABLETS (500 MG) BY ORAL ROUTE ONCE DAILY FOR 1 DAY THEN 1 TABLET (250 MG) BY ORAL ROUTE ONCE DAILY FOR 4 DAYS 09/29 completed Not Available Not Available Not Available metronidazo le 0.75 % (37.5 mg/5 gram) vaginal gel Insert 1 applicato rful every day by vaginal route at bedtime for 5 days. 04/02 completed Not Available Not Available Not Available ondansetron HCl 4 mg tablet TAKE 1 TABLET BY MOUTH EVERY 4 TO 6 HOURS NEEDED 09/15 completed Not Available Not Available Not Available fexofenadin e 180 mg tablet 01/29 completed Not Available Not Available Not Available ondansetron 8 mg disintegrat ing tablet DISSOLVE 1 TABLET IN MOUTH EVERY 6 TO 8 HOURS NEEDED active Not Available Not Available No t Available metoclopram otto 5 mg tablet TAKE 1 TABLET BY MOUTH EVERY 6 HOURS NEEDED FOR NAUSEA OR VOMITING 12/29 completed Not Available Not Available Not Available tacrolimus 0.1 % topical ointment 01/29 completed Not Available Not Available Not Available sertraline 25 mg tablet TAKE 1 TABLET BY MOUTH ONCE DAILY active Not Available Not Available No t Available magnesium 200 mg tablet Take 1 tablet every day by oral route. 04/02 completed Not Available Not Available Not Available magnesium 11/30 completed Not Available Not Available Not Available Zoloft 12/29 completed Not Available Not Available Not Available Unisom (doxylamine ) 11/30 completed Not Available Not Available Not Available active Not Available Not Avai lable Not Available Vitamin B6 11/30 completed Not Available Not Available Not Available vitamin-iro n-FA 11/30 completed Not Available Not Available Not Available Sronyx 0.1 mg-20 mcg tablet 04/23 completed Not Available Not Available Not Available Probiotic active Not Available Not Tammy ilable Not Available magnesium 200 mg (as magnesium oxide) chewable tablet Take by oral route. 12/29 completed Not Available Not Available Not Available cannabidiol (CBD) oral edible Take by oral route. 11/06 completed Not Available Not Available Not Available Vitals Date Recorded Body height Body mass index (BMI) Body weight Systolic blood pressure Diastolic blood pressure Provider Name and Address Organization Details Last Updated DateTime 11/06/2024 167.64 cm 19.9 kg/m2 03909.86 g 116 mm[Hg] 73 mm[Hg] Maryanne [facility] 5 15:19:55 Date Recorded Body height Body mass index (BMI) Body weight Systolic blood pressure Diastolic blood pressure Provider Name and Address Organization Details Last Updated DateTime 12/08/2024 167.64 cm 20.8 kg/m2 49742.42 g 122 mm[Hg] 74 mm[Hg] Maryanne [facility] 5 15:38:16 Date Recorded Body height Body mass index (BMI) Body weight Systolic blood pressure Diastolic blood pressure Provider Name and Address Organization Details Last Updated DateTime 12/29/2024 167.64 cm 21.1 kg/m2 98945.6 g 118 mm[Hg] 69 mm[Hg] Alisa Padilla [facility] 15:29:28 Social History Question Answer Notes LastModified by Organizat ion Details LastModified Time Tobacco Smoking Status Never Smoker Sadia booth [facility] 10/06/2023 15:12:08 Do You Have An Advance Directive? No Information not available 01/29/2023 What Is Your Level Of Alcohol Consumption? None [email or web address] Information not available 12/29/2024 If You Are , What Was Your Level Of Alcohol Consumption Prior To ? Occasional Information not available 12/29/2024 How Many Years Have You Consumed Alcohol? 12 Information not available 01/29/2023 Are You Blind Or Do You Have Difficulty Seeing? No Information not available 01/29/2023 What Is Your Level Of Caffeine Consumption? Moderate Information not available 01/29/2023 How Much Tobacco Do You Chew? None Information not available 01/29/2023 In The 14 Days Before Symptom Onset, Have You Had Close Contact With A Laboratory-confir med COVID-19 While That Case Was Ill? No Information not available 01/29/2023 In The 14 Days Before Symptom Onset, Have You Had Close Contact With A Person Who Is Under Investigation For COVID-19 While That Person Was Ill? No Information not available 01/29/2023 Have You Been To An Area Known To Be High Risk For COVID-19? Yes Information not available 01/29/2023 Are You Deaf Or Do You Have Serious Difficulty Hearing? No Information not available 01/29/2023 What Type Of Diet Are You Following? SPECIFIC Information not available 01/29/2023 What Is The Highest Grade Or Level Of School You Have Completed Or The Highest Degree You Have Received? 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 No Information not available 01/29/2023 Have You Ever Been Counseled For Unhealthy Alcohol Use? No Information not available 10/06/2023 Do You Use Protection During Sex? No Information not available 01/29/2023 Do You Use Your Seat Belt Or Car Seat Routinely? Yes Information not available 01/29/2023 Do You Have Smoke And Carbon Monoxide Detectors In Your Home? Yes Information not available 01/29/2023 At What Age Did You Start Smoking Tobacco? 0 Information not available 01/29/2023 How Much Tobacco Do You Smoke? No Information not available 01/29/2023 Do You Feel Stressed (tense, Restless, Nervous, Or Anxious, Or Unable To Sleep At Night)? [id number] Information not available 01/29/2023 Do You Use Any Illicit Or Recreational Drugs? No Information not available 01/29/2023 Do You Use Sunscreen Routinely? No Information not available 01/29/2023 How Many Years Have You Smoked Tobacco? 0 Information not available 01/29/2023 Have You Used IV Drugs? No Information not available 01/29/2023 Sex: Unknown Functional Status Question Answer Note LastModified by Organizat ion Details LastModified Time Do you have difficulty walking or climbing stairs? No [email or web address] Information not available 10/06/2023 Are you able to walk? [email or web address] Information not available 01/29/2023 Are you able to care for yourself? Yes [email or web address] Information not available 10/06/2023 Do you have difficulty dressing or bathing? No [email or web address] Information not available 10/06/2023 What is your exercise level? Occasional Information not available 01/29/2023 Mental Status None recorded. Family History Relationship Description Onset Age of this Age Resolved Age Notes LastModified by Organization Details LastModified Time Mother Hypercholest erolemia 52 [email or web address] Not available 2023 11:33:57 Mother Hypercholest erolemia [email or web address] Not available 2022 12:27:33 Maternal Grandfather Myocardial infarction Not available 01/29 15:02:53 Maternal Grandfather Heart disease Not available 2022 15:02:53 Father Hypercholest [email or web address] Not available 2022 15:02:53 Father Hypertensive disorder Not available 2022 15:02:53 Medical History Condition Response Allergies (Food, seasonal, environmental ) N Other N Blood Transfusion N Drug/Latex Allergies/Reactions Y Breast Cancer N Dermatologic Disorders N Lung Disease N Defects or Inherited Disease N Breast Problem Y Gestational Diabetes N Hematologic disorders N Anesthesia Complications N History of STI N Deep Vein Thrombosis N Polycystic ovary syndrome N Anxiety Disorder Y Autoimmune disease N Arthritis N Infertility N Polyps N Acid Reflux (GERD) N History of abnormal pap N Cancer N Stroke N Varicosities N Neurologic/Epilepsy N Endometriosis N High Cholesterol N Headaches N Fibromyalgia N Kidney Disease N Heart Problems N Kidney or Bladder Problems N Thyroid Problems N GI Problems N Eating Disorder N Anemia N Art (IVF or FET) N Psychiatric Illness N Ovarian Cancer N Diabetes N Pulmonary (TB, Asthma) N Hepatitis/Liver Disease N No Past Medical History N Eczema N Urinary Tract Infection N Abuse/Domestic Violence N Asthma Y Trauma/Violence N Depression/ depression Y Heart Disease N Pre-Eclampsia N Hypertension N Osteoporosis N Thrombophilias N Gynecological History Statement/Question Response Date of Last Mammogram 04/19/2024 Flow Moderate Date of LMP 01/30/2023 Was last menstrual period normal Y STIs/STDs N Date of control 11/04/2022 Date of Last Colonoscopy None Desired Control Method None Abnormal Pap N HPV Vaccine Y Duration of Flow (days) 4 0 Current Control Method None Age at First Child 1 Are cycles usually normal Y Frequency of Cycle (Q days) 27 Sexually Active? Y Menses Monthly Y Date of DEXA bone scan Age of first menstrual cycle 12 Date of Last Pap Smear 06/05/2024 Sexual Problems? N LMP Definite N Obstetrics History GPAL:G 2 P 1 0 0 1 Type Value Full Term 1 Living 1 Total 2 Past Encounters Encounter ID Performer Location Encounter Start Date Encounter Closed Date Diagnosis/Indication Diagnosis SNOMED-CT Code Diagnosis ICD10 Code Diagnosis Note [id number] Leonarda Espinosa , [facility] [address] [address] 01/29/2023 14:39:00 01/29/2023 15:39:25 Missed period 46871726 N92.5 Gynecologi c examination 75886943 Z01.419 Take Calcium with Vitamin D 1200mg daily if not receiving in daily diet. It is strongly advised to have an annual flu shot and up can obtain at most pharmacies . If you have not had a TDap shot in the last 10 years you should obtain one as well. Discussed with patient & provided with informatio n regarding Gardisil vaccine to prevent the 4 strains for HPV that cause cervical cancer if under age 26. Encourage safe sexual practices, to use condoms and limit partners if not already in a monogamous relationsh ip. Do monthly self breast exams. Have mammogram yearly or every other year depending on family history. BRCA testing is now available for patients with strong genetic history of female cancer. If interested contact the office. Engage in daily exercise of low impact aerobic exercise 45-60 minutes 4-5 times weekly. Avoid tobacco and illicit drugs as well as using moderation with alcohol intake less than 1-2 8 oz beverages daily. This lifestyle behavior pattern will lead to less health conditions and longer life span. If BMI greater than 25 weight watchers or dietary consult advised. Patient received above instructio ns, and questions have been answered. If you have any questions please call or respond to this email. Patient was made aware of the patient portal and may obtain a paper copy of today's plan if desired. Pap sent STD Screen sent Genetic Screen discussed Colon Screen na Dexa Screen na Routine Labs PCP [id number] Jerome Velez MD [facility] [address],[place] [address] 04/02/2023 15:27:47 04/02/2023 16:17:45 [id number] [address] [place] [address] 04/02/2023 15:28:08 04/02/2023 17:30:07 Amenorrhea 61232995 N91.2 Venereal d isease screening 652425067 Z11.3 [id number] Jerome Velez MD [facility] [address],[place] [address] 04/23/2023 11:25:34 04/23/2023 14:51:12 screening 983825424 Z36.82 [id number] Jerome Velez MD [facility] [address] [place] [address] 04/23/2023 11:26:07 04/23/2023 13:14:51 Routine care 693309405 Z34.90 [id number] [facility] [address] [place] [address] 05/19/2023 16:59:46 05/20/2023 12:24:24 Routine care 005423004 Z34.92 [id number] Jerome Velez MD [facility] [address] [place] [address] 06/18/2023 11:21:54 06/18/2023 13:00:13 screening for malformation 296591365 Z36.3 Z3A.19 [id number] Reshma Olea [facility] [address],[place] [address] 06/18/2023 11:22:27 06/18/2023 16:28:41 Routine care 378537598 Z34.92 Gestation period, 19 weeks [id number] Z3A.19 [id number] [facility] [address],[place] [address] 07/16/2023 12:08:40 07/16/2023 12:57:54 Routine care 465933508 Z34.92 [id number] [facility] [address],[place] [address] 08/11/2023 09:45:02 08/11/2023 10:34:27 Routine care 034467815 Z34.92 [id number] [facility] [address],[place] [address] 08/25/2023 16:57:34 08/25/2023 17:34:51 Routine care 075690405 Z34.92 [id number] Jerome Velez MD [facility] [address],[place] [address] 09/10/2023 11:27:11 09/10/2023 12:10:53 Uterine size for dates discrepancy 586328840 O26.843 Z3A.31 [id number] Reshma Olea [facility] [address],[place] [address] 09/10/2023 11:27:41 09/10/2023 12:24:05 Routine care 792405103 Z34.92 [id number] Reshma Olea [facility] [address],[place] [address] 09/22/2023 16:30:57 09/22/2023 17:29:17 Routine care 440373724 Z34.92 [id number] Jerome Velez MD [place] [facility] [address],[place] [address] 09/22/2023 17:37:54 09/23/2023 09:02:42 Chronic hypertension complicating AND/OR reason for care during 51578988 O16.9 [id number] Jerome Velez MD [place] [facility] [address],[place] [address] 09/29/2023 16:23:38 09/30/2023 08:52:25 -induced hypertension 88403043 O13.9 Z3A.34 [id number] Jerome Velez MD [facility] [address],[place] [address] 09/29/2023 16:24:05 09/30/2023 08:51:54 -induced hypertension 92807236 O13.9 Z3A.34 [id number] Reshma Olea [facility] [address],[place] [address] 09/29/2023 16:24:36 09/30/2023 08:51:08 Routine care 561358954 Z34.92 [id number] Reshma Olea [facility] [address],[place] [address] 10/13/2023 16:31:01 10/13/2023 18:17:41 Routine care [id number] Z34.92 [id number] Reshma Olea [facility] [address],[place] [address] 10/06/2023 15:06:49 10/06/2023 16:22:11 Routine care 784300571 Z34.92 [id number] SHERRY CERVANTES MD [place] [address],[place] [address] 10/06/2023 15:11:59 10/06/2023 15:48:47 Chronic hypertension complicating AND/OR reason for care during 69401755 O16.9 Z3A.35 [id number] Jerome Velez MD [place] [address],[place] [address] 10/13/2023 16:30:24 10/13/2023 18:19:36 -induced hypertension 34588920 O13.9 Z3A.36 [id number] Jerome Velez MD [place] [facility] [address],[place] [address] 10/13/2023 16:30:43 10/13/2023 18:18:04 -induced hypertension 21970096 O13.9 Z3A.36 [id number] Reshma Olea [facility] [address],[place] [address] 12/01/2023 11:31:09 12/01/2023 14:10:52 care 984180512 Z39.2 f/u 6 month wwe [id number] Reshma Olea [facility] [address],[place] [address] 12/03/2023 14:14:59 12/03/2023 14:55:24 Breast lump 68982235 N63.0 plan diagnostic mammogram, with us left breast f/u wwe [id number] Reshma Olea [facility] [address],[place] [address] 06/05/2024 11:57:21 06/05/2024 13:03:50 Gynecologic examination 91608897 Z01.419 [id number] Reshma Olea [facility] [address],[place] [address] 08/11/2024 14:31:14 08/11/2024 15:18:32 Anxiety 27845279 F41.9 discussed se risks and benefits, start zoloft 25 mg daily. if any suicidal thoughts to ED call if needs sooner apt otherwise f/u 4 weeks med check [id number] Reshma Olea [facility] [address],[place] [address] 09/15/2024 15:14:27 09/15/2024 16:04:32 Mixed anxiety and depressive disorder 956177743 F41.8 continue sertraline 25 mg f/u 4-5 mo or sooner if neededif any suicidal thoughts to ED [id number] Jerome Velez MD [place] [address],[place] [address] 11/06/2024 14:50:54 11/06/2024 15:10:36 screening 934803491 Z36.87 Z3A.08 [id number] SHERRY CERVANTES MD [place] [address],[place] [address] 11/06/2024 14:51:23 11/06/2024 16:17:30 Nausea and vomiting in 6529370245 O21.9 test positive 459178079 Z32.01 1. Exam today within normal limits.2. Ultrasound today confirms GA and viability. EDC 9/3. GC/Clamydi a testing done: will f/u as indicated. 4. ACOG guidelines and plan of care for reviewed with patient. All questions answered.5 . Return to office at 12 weeks for new OB visit6. Will need new OB labs at next visit.7. Genetic screening: desires, does not need carrier screening. Past pregn zak history of gestational hypertension 229156631 Z87.59 - hx of gHTN in last , delivered at 37 weeks- discussed recurrence risk- recommend bASA ppx at 12 weeks [id number] Jerome Velez MD [place] [address],[place] [address] 12/04/2024 14:56:58 12/04/2024 15:37:15 screening 686717922 Z36.82 Z3A.12 [id number] SHERRY CERVANTES MD [place] [address],[place] [address] 12/08/2024 15:23:27 12/08/2024 16:11:35 Routine care 010016750 Z34.01 [id number] [facility] [address],[place] [address] 12/29/2024 15:11:16 12/29/2024 15:47:54 Gestation period, 15 weeks 0728604 Z3A.15 Health Concerns Section Related Observation LastModified by Organization Detai ls LastModified Time None Recorded Concern Status LastModified by Organization Details LastModified Time None Recorded Advance Directives Directive N: Payers Encounter Date Sequence Insurance Name Policy Number Policy Servin Covered Member ID Servin Member ID Guarantor Name 11/06/2024 1 [place] [id number] Shelby Antunez [id number] 17 Shelby Antunez 11/06/2024 1 [place] [id number] Shelby Antunez [id number] 17 Shelby Antunez 12/04/2024 1 [place] [id number] Shelby Antunez [id number] 17 Shelby Antunez 12/08/2024 1 [place] [id number] Shelby Antunez [id number] 17 Shelby Antunez 12/29/2024 1 [place] [id number] Shelby Antunez [id number] Shelby Antunez Notes Date Note Type Note Provider Name and Address Organization Details Recorded Time 11/06/2024 text/html Presents to the office today to confirm . Patient denies any problems up to this point with her . Patient denies cramping or vaginal bleeding. G1: [place], MIL at 37 weeks; had PPH and retained placenta Patient is . Lives with partner and daughter. 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 Denies tobacco/EtOH/ill icits. SHERRY CERVANTES MD [address], [place], [address], [facility] 11/06/2024 16:16:13 OBGyn Episode Ob Episode Information Episode Created Date Number of Fetuses Patient Bloodtype Patient rh Status Prepregnancy Weight lbs Domestic Partner Domestic Partner Phone Father Name Formulation Chemist Status 12/09/19 25 1 B Positive 129 OPEN Fetus Data First Name Last Name Admitted to NICU Weight (g) Sex Living Outcome Pediatric Complications Fetus ID Race Codes Race Delivery Type [id number] Problems Problem Notes Problem Name Start Date End Date Resolution Snomed Code Not e -induced hypertension [id number] history of GHTN - Baseline labs at 20wks Steffen Calculation Initial Steffen Date Initial Exam Date Initial Exam Provider Initial Ultrasound Date Last Menstrual Period Date Ultra Sound Weeks Gestation 06/16/2025 12/08/2024 11/06/2024 8 Eighteen To Twenty Week Steffen Update Ultra Sound Date Fundal Height At Umbil Quickening Date Ultra Sound Latest Weeks Gestation Final Steffen Confirmed By Final Steffen Confirmed Date Final Steffen Date Ultra Sound Latest Days Gestation 0 12/08/2024 06/16/20 25 0 Pre-filemon Flowsheet Flowsheet Date 12/08/2024 Saunders Score Blood Edema Fundus Height Fundus Units Glucose Ketones Leukocytes Nitrite Labor Signs Protein Cervic Dilation Cervic Effacement Cervic Station Type Weight in lbs Pre/Post Dialysis Refused Weight 129.08419959414 BP Diastolic BP Location Tested BP Systolic BP Type 74 L arm 122 sitting Fetus Heart Rate Present A Present Fetus Movement Comments Patient presents to [facility] care. Nausea somewhat controlled with zofran, does report increased constipation. Discussed miralax. otherwise uncomplicated. No cramping. NT/NB wnl, NIPT drawn 12/04. Other OB labs wnl. RTC 4 weeks for routine care. Flowsheet Date 12/29/2024 Saunders Score Blood Edema Fundus Height Fundus Units Glucose Ketones Leukocytes Nitrite Labor Signs Protein Cervic Dilation Cervic Effacement Cervic Station neg none Type Weight in lbs Pre/Post Dialysis Refused Weight 131.699758762549 BP Diastolic BP Location Tested BP Systolic BP Type 69 118 Fetus Heart Rate Present Fetus Movement A No Comments Patient is having some const ipation, pain, nausea and vomiting. doing well no FM yet, anterior placenta precautions and education reviewed f/u 4 weeks anatomy Menstrual History Last Menstrual Date Menses Monthly On Bcp Conception Prior Menses Frequency Hcg Plus Date Menarche Onset Age Delivery Information Delivery Date Delivery Type Labor Anesthesia Weeks Gestation Incision Type Labor Labor Length Hrs Delivered By Post Complications Tubal Sterilization Discharge Date Comments Discharge Information Feeding Method Contraceptive Method Maternal HG B and HCT Levels Ob Episode Information Episode Created Date Number of Fetuses Patient Bloodtype Patient rh Status Prepregnancy Weight lbs Domestic Partner Domestic Partner Phone Father Name Formulation Chemist Status 04/23/20 23 1 B Positive 133 CLOSED Fetus Data First Name Last Name Admitted to NICU Weight (g) Sex Living Outcome Pediatric Complications Fetus ID Race Codes Race Delivery Type 2834.95 F true Full Term [id number] Vaginal Delivery Steffen Calculation Initial Steffen Date Initial Exam Date Initial Exam Provider Initial Ultrasound Date Last Menstrual Period Date Ultra Sound Weeks Gestation 11/06/2023 04/23/2023 04/02/2023 01/30/2023 8 Eighteen To Twenty Week Steffen Update Ultra Sound Date Fundal Height At Umbil Quickening Date Ultra Sound Latest Weeks Gestation Final Steffen Confirmed By Final Steffen Confirmed Date Final Steffen Date Ultra Sound Latest Days Gestation 0 [email or web address] 04/23/2023 11/06/19 24 0 Pre- Flowsheet Flowsheet Date 04/23/2023 Saunders Score Blood Edema Fundus Height Fundus Units Glucose Ketones Leukocytes Nitrite Labor Signs Protein Cervic Dilation Cervic Effacement Cervic Station Type Weight in lbs Pre/Post Dialysis Refused BP Diastolic BP Location Tested BP Systolic BP Type Fetus Heart Rate Present Fetus Movement Comments Flowsheet Date 04/23/2023 Saunders Score Blood Edema Fundus Height Fundus Units Glucose Ketones Leukocytes Nitrite Labor Signs Protein Cervic Dilation Cervic Effacement Cervic Station 12 Type Weight in lbs Pre/Post Dialysis Refused Weight 131.640311634157 BP Diastolic BP Location Tested BP Systolic BP Type 70 R arm 109 sitting Fetus Heart Rate Present A 145 Fetus Movement Comments this patient is a 27-year-ol d 1 at 11 weeks and 6 days gestation she has no complaints other than some nausea. She has medication for nausea. She is vaccinated. She was given vaccine recommendations. We talked about care in detail. She has an unremarkable medical, surgical, obstetric history. She will begin routine care. Flowsheet Date 05/19/2023 Saunders Score Blood Edema Fundus Height Fundus Units Glucose Ketones Leukocytes Nitrite Labor Signs Protein Cervic Dilation Cervic Effacement Cervic Station neg none none trace Type Weight in lbs Pre/Post Dialysis Refused Weight 134.088291105521 BP Diastolic BP Location Tested BP Systolic BP Type 72 117 Fetus Heart Rate Present A 155 Present Fetus Movement A Yes Comments patient is having some pain, constipation, discharge, nausea and vomiting. rec miralax daily, education and precautions reviewed f/u anatomy scan at 20 weeks Flowsheet Date 06/18/2023 Saunders Score Blood Edema Fundus Height Fundus Units Glucose Ketones Leukocytes Nitrite Labor Signs Protein Cervic Dilation Cervic Effacement Cervic Station Type Weight in lbs Pre/Post Dialysis Refused BP Diastolic BP Location Tested BP Systolic BP Type Fetus Heart Rate Present Fetus Movement Comments Flowsheet Date 06/18/2023 Saunders Score Blood Edema Fundus Height Fundus Units Glucose Ketones Leukocytes Nitrite Labor Signs Protein Cervic Dilation Cervic Effacement Cervic Station neg none none trace Type Weight in lbs Pre/Post Dialysis Refused Weight 139.143232306503 BP Diastolic BP Location Tested BP Systolic BP Type 71 113 Fetus Heart Rate Present Fetus Movement A Yes Comments patient is having pain, cons tipation, discharge, nausea. anatomy complete, doing well, +FM, asked about lamination spinner and classes, ok for flu/covid f/u 4 weeks. 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 flu shot done, ok for tdap and rsv, gct today doing well, plan 2 week f/u. education and precautions Flowsheet Date 08/25/2023 Saunders Score Blood Edema Fundus Height Fundus Units Glucose Ketones Leukocytes Nitrite Labor Signs Protein Cervic Dilation Cervic Effacement Cervic Station neg none 29 none trace Type Weight in lbs Pre/Post Dialysis Refused Weight 159.436994474443 BP Diastolic BP Location Tested BP Systolic BP Type 68 117 Fetus Heart Rate Present A 150 Fetus Movement A Yes Comments patient is having pelvic nils n, discharge, and swelling. precautions, sit on yoga ball, ok for stretches +FM f/u 2 weeks Flowsheet Date 09/10/2023 Saunders Score Blood Edema Fundus Height Fundus Units Glucose Ketones Leukocytes Nitrite Labor Signs Protein Cervic Dilation Cervic Effacement Cervic Station Type Weight in lbs Pre/Post Dialysis Refused BP Diastolic BP Location Tested BP Systolic BP Type Fetus Heart Rate Present Fetus Movement Comments Flowsheet Date 09/10/2023 Saunders Score Blood Edema Fundus Height Fundus Units Glucose Ketones Leukocytes Nitrite Labor Signs Protein Cervic Dilation Cervic Effacement Cervic Station neg trace none trace Type Weight in lbs Pre/Post Dialysis Refused Weight 160.534327990816 BP Diastolic BP Location Tested BP Systolic BP Type 64 147 70 140 Fetus Heart Rate Present Fetus Movement A Yes Comments patient is having discharge and swelling. precautions reviewed, efw 30%, call for preadmission f/u 2 weeks Flowsheet Date 09/22/2023 Saunders Score Blood Edema Fundus Height Fundus Units Glucose Ketones Leukocytes Nitrite Labor Signs Protein Cervic Dilation Cervic Effacement Cervic Station neg trace 31 none trace Type Weight in lbs Pre/Post Dialysis Refused Weight 165.686626293281 BP Diastolic BP Location Tested BP Systolic BP Type 82 142 Fetus Heart Rate Present A 139 Fetus Movement A Yes Comments patient states that having s ome pelvic pain, BH contractions, discharge, and swelling. probable gestational htn, rpt labs, nst today, precautions reviewed. start weekly testing Flowsheet Date 09/22/2023 Saunders Score Blood Edema Fundus Height Fundus Units Glucose Ketones Leukocytes Nitrite Labor Signs Protein Cervic Dilation Cervic Effacement Cervic Station Type Weight in lbs Pre/Post Dialysis Refused BP Diastolic BP Location Tested BP Systolic BP Type Fetus Heart Rate Present Fetus Movement Comments Flowsheet Date 09/29/2023 Saunders Score Blood Edema Fundus Height Fundus Units Glucose Ketones Leukocytes Nitrite Labor Signs Protein Cervic Dilation Cervic Effacement Cervic Station Type Weight in lbs Pre/Post Dialysis Refused BP Diastolic BP Location Tested BP Systolic BP Type Fetus Heart Rate Present Fetus Movement Comments Flowsheet Date 09/29/2023 Saunders Score Blood Edema Fundus Height Fundus Units Glucose Ketones Leukocytes Nitrite Labor Signs Protein Cervic Dilation Cervic Effacement Cervic Station Type Weight in lbs Pre/Post Dialysis Refused BP Diastolic BP Location Tested BP Systolic BP Type Fetus Heart Rate Present Fetus Movement Comments Flowsheet Date 09/29/2023 Saunders Score Blood Edema Fundus Height Fundus Units Glucose Ketones Leukocytes Nitrite Labor Signs Protein Cervic Dilation Cervic Effacement Cervic Station neg trace none trace Type Weight in lbs Pre/Post Dialysis Refused Weight 164.86781325231 BP Diastolic BP Location Tested BP Systolic BP Type 93 152 80 138 Fetus Heart Rate Present Fetus Movement A Yes Comments patient BH contractions, dis charge, and swelling. 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, rpt labs today and weekly, plan 37 week IOL, scheduled for 10/17 cytotec, buccal, plan testing, precautions and education Flowsheet Date 10/06/2023 Saunders Score Blood Edema Fundus Height Fundus Units Glucose Ketones Leukocytes Nitrite Labor Signs Protein Cervic Dilation Cervic Effacement Cervic Station Type Weight in lbs Pre/Post Dialysis Refused BP Diastolic BP Location Tested BP Systolic BP Type Fetus Heart Rate Present Fetus Movement Comments Flowsheet Date 10/06/2023 Saunders Score Blood Edema Fundus Height Fundus Units Glucose Ketones Leukocytes Nitrite Labor Signs Protein Cervic Dilation Cervic Effacement Cervic Station neg trace none trace Type Weight in lbs Pre/Post Dialysis Refused Weight 164.67433062348 BP Diastolic BP Location Tested BP Systolic BP Type 88 152 82 140 Fetus Heart Rate Present Fetus Movement A Yes Comments patient is having BH contrac tions, discharge, and swelling. denies paz, visual changes, epigastric painbpp 10/10, discussed us efw 20%, IOL scheduled, precautions and education f/u one week Flowsheet Date 10/13/2023 Saunders Score Blood Edema Fundus Height Fundus Units Glucose Ketones Leukocytes Nitrite Labor Signs Protein Cervic Dilation Cervic Effacement Cervic Station Type Weight in lbs Pre/Post Dialysis Refused BP Diastolic BP Location Tested BP Systolic BP Type Fetus Heart Rate Present Fetus Movement Comments Flowsheet Date 10/13/2023 Saunders Score Blood Edema Fundus Height Fundus Units Glucose Ketones Leukocytes Nitrite Labor Signs Protein Cervic Dilation Cervic Effacement Cervic Station Type Weight in lbs Pre/Post Dialysis Refused BP Diastolic BP Location Tested BP Systolic BP Type Fetus Heart Rate Present Fetus Movement Comments Flowsheet Date 10/13/2023 Saunders Score Blood Edema Fundus Height Fundus Units Glucose Ketones Leukocytes Nitrite Labor Signs Protein Cervic Dilation Cervic Effacement Cervic Station trace trace 1cm 60% -2 Type Weight in lbs Pre/Post Dialysis Refused Weight 169.299582521418 BP Diastolic BP Location Tested BP Systolic BP Type 80 133 Fetus Heart Rate Present Fetus Movement A Yes Comments Patient c/o BH ctx, back spa sms, and swelling. NST R bpp 04/27, IOL wednesday , paz yesterday resolved with tylenol no visual changes, no epigastric pain precautions reviewed f/u IOL Menstrual History Last Menstrual Date Menses Monthly On Bcp Conception Prior Menses Frequency Hcg Plus Date Menarche Onset Age 0501/30/2023 Genetic Screening And Infection History Question Response Note Mental Retardation/Autism false Patient's Age Will Be 35 Years Or Older At Estim ated Date of Delivery false Thalassemia (Malay, Kyrgyz, Mediterranean, Or Background): MCV < 80 false Neural Tube Defect (Meningomyelocele, Spina Bifi da, Or Anencephaly) false Congenital Heart Defect false Down Syndrome false Enrique-Sachs (eg, Jain, Cajun, Romanian-Uehling) f alse Jaden Disease false Sickle Cell Disease Or Trait () false Hemophilia Or Other Blood Disorders false Muscular Dystrophy false Cystic Fibrosis false [place]'s Chorea false Intellectual Disability/Autism false If Yes, Was Person Tested For Fragile X? false Other Inherited Genetic Or Chromosomal Disorder false Maternal Metabolic Disorder (eg, Type 1 Diabetes , PKU) false Patient Or Baby's Father Had A Child With Defects Not Listed Above false Recurrent Loss, Or A Stillbirth false Medications (including Suppl ements, Vitamins, Herbs, OTC Drugs), Illicit/Recreational Drugs, Alcohol false If Yes, Agent(s) And Strength/Dosage false Any Other Genetic History false Live With Someone With TB Or Exposed To TB false Patient Or Partner Has History Of Genital Herpes false Rash Or Viral Illness Since Last Menstrual Perio d false History Of STD, Gonorrhea, Chlamydia, HPV, Syphi lis false Other Infection History false History of HIV false History of Hepatitis false Prior GBS-infected child false Hemoglobinopathy Or Carrier false Other Structural Defect false Recent Travel History Outside of Country false Delivery Information Delivery Date Delivery Type Labor Anesthesia Weeks Gestation Incision Type Labor Labor Length Hrs Delivered By Post Complications Tubal Sterilization Discharge Date Comments 01/29/202 4 [facility]du[facility] d [facility]-Ep id[facility] 37.2 Reshma Del Valle CNJanina PPH, GHTN Discharge Information Feeding Method Contraceptive Method Maternal HG B and HCT Levels
--- OUTSIDE RECORDS SUMMARY | 2025-01-23 21:43 | XMS_ITS | Encounter Summary ---
Author Organization [facility] Address [address] 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 Name Role Phone Lamar Alberts APRN, CNP Unavailable [phone] Dusty Moody MD Unavailable [phone] Jennifer Zepeda APRN, CNP Primary Care P rovider Reason for Visit * Reason Comments Medication Refill Encounter Details Date Type Department Care Team (Late st Contact Info) Description 06/21/2020 Refill [facility] - Primary Care - [place] [address] [place] [address] Jennifer Zepeda APRN, CNP [address] [place] [address] Medication Refill Social History Tobacco [...] on file Sexual Orientation Not on file documented as of this encounter Miscellaneous Notes * Telephone Encounter - Mery Cason RN - 07/05/2020 11:45 AM CDT See the patients response. FYI only. * Telephone Encounter - Shelby Cortez RN - 06/21/2020 5:26 PM CDT mychart to patient * Telephone Encounter - Jennifer Zepeda APN, CNP - 06/21/2020 8:18 AM CDT If patient is using , she needs additional daily medication and/or see neuro. * Telephone Encounter - Stephanie Marquis RN - 06/21/2020 7:42 AM CDT Last filled 05/21/2020 for #9 with 0 refills. Last routine: visit 04/25/2020. Lab/testin04/25/2020 Upcoming visit: none Refill pending for your review and approval. Requested Prescriptions Pending Prescriptions Disp Refills ??? SUMAtriptan (IMITREX) 25 MG Tablet [Pharmacy Med Name: SUMATRIPTAN SUCC 25 MG TABLET] 9 Tab 0 Sig: TAKE 1 TAB AT ONSET OF MIGRAINE. MAY REPEAT IN 2 HOURS IF NEEDED documented in this encounter Plan of Treatment Not on file documented as of this encounter Visit Diagnoses Diagnosis Intractable episodic tension-type headache Episodic tension type headache documented in this encounter Additional Health Concerns Infection Onset Date Last Indicated Resolved Time COVID - 19 04/10/2021 04/10/2021 04/11/2021 7:01 AM CDT COVID - 19 Confirmed 04/10/2021 04/10/2021 021 12:16 AM CDT Assessment Noted Time PHQ-9 Depression Total Score: 0 04/25/20 20 10:00 AM CDT documented as of this encounter Care Teams Home Teaching Grades 7 And 8 Teacher Relationship Specialty Start Date End Date Jennifer Zepeda APRN, CREATIVE ARTS MUSIC THERAPIST [address] [place] [address] PCP - General Advanced Practice Nurse 04/25/20 Lamar Alberts APRN, CREATIVE ARTS MUSIC THERAPIST [address] [facility] [address] [place] [address] Consulting Physician Family Medicine 08/03/18 Dusty Moody MD [address] [address] Consulting Physician Dermatology 08/03/18 documented as of this encounter
--- OUTSIDE RECORDS SUMMARY | 2025-01-23 21:44 | XMS_ITS | Clinical Summary ---
Author Organization [facility] Address [address] [place] [address] Phone Care Team Providers Care Cook Pressure Name Role Phone Lamar Alberts APRN, GEOSPATIAL ENGINEER Unavailable Dusty Moody MD Unavailable [phone] Jennifer Zepeda APRN, GEOSPATIAL ENGINEER Primary Care P rovider Allergies Active Allergy Reactions Criticality Noted Date Comments Gold Unknown 10/27/2021 Other-Food Allergen (Not Fou nd In Search) Unknown 10/27/2021 Phenylenediamine Streptococci Hives 10/27/2021 Sulfa Antibiotics Hives 03/31/2017 Medications Levonorgestrel-E thinyl Estrad (SRONYX) 0.1-20 MG-MCG Tablet 10/01/2019 Activ e MAGNESIUM PO Take by mouth. Active SUMAtriptan (IMITREX) 25 MG TabletIndication s:Intractable episodic tension-type headache TAKE 1 TAB AT ONSET OF MIGRAINE. MAY REPEAT IN 2 HOURS IF NEEDED 9 Tab 06/21/2020 Active ibuprofen (MOTRIN) 600 MG TabletIndication s:Pain, dental Take 1 Tablet by mouth every 8 hours. 30 Tablet 1 01/27/2021 Active fexofenadine (SHIRLEY) 180 MG Tablet Take 1 Tablet by mouth daily. 90 Tablet 1 03/11/2022 Active Sfjpjuwy-Lck-Vd- FA ( 1 + IRON PO) Active Probiotic Product (PROBIOTIC PO) Take by mouth. Active Active Problems Problem Noted Date Diagnosed Date Ganglion, right wrist 08/24/2018 History of ovarian cyst 08/03/2018 Immunizations Immunization Administration Dates Next Due DTAP VACCINE 03/04/2001, 7,02/16/1996,1995,1995 Hib Vaccine,unspecified Formulation 02/1997,02/16/1996,1995,1995 Influenza Vaccine 06/29/2009 Influenza Vaccine greater than 3 yrs 07/27/2018 Influenza Vaccine, Quadrivalent, PF 08/12/2021 MMR Vaccine 03/04/2001,08/16/1996 OPV 02/16/1996,1995,1995 Pneumococcal Vaccine Adult - 23 Valent 11/14/2009 TB Skin Test 08/12/2021 TD VACCINE 08/12/2021 TDAP Vaccine 11/14/2009 Varicella Vaccine Live 2021,08/16/1996 Family History Medical History Relation Name Comments High Cholesterol Father Heart Attack Maternal Grandfather No Known Problems Maternal Grandmother No Known Problems Mother Relation Name Status Comments Father Alive Maternal Grandfather Alive Maternal Grandmother Alive Mother Alive Paternal Grandfather Paternal Grandmother Alive Social History Tobacco Use Types Packs/Day Years Used Date Smoking Tobacco: Never Smokeless Tobacco: Never Tobacco Cessation:Counseling Given: Not Answered Alcohol Use Standard Drinks/Week Comments Yes 0 (1 standard drink = 0.6 oz pur e alcohol) every once and awhile PHQ-2 Answer Date Recorded Total Score - Questions 1-9 0 02/2020 Education Answer Date Recorded What is the highest level of school you have completed or the highest degree you have received? 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, [place]) 12/14/2022 Sexually Active Control Partners Comments Yes Pill, Condom Comments No Sex and Gender Information Value Date Recorded Sex Assigned at Not on file Legal Sex Female 8:25 PM CDT Gender Identity Not on file Sexual Orientation Not on file Last Filed Vital Signs Vital Sign Reading Time Taken Comments Blood Pressure 104/62 12/18/2022 3:55 PM CDT Pulse 85 12/18/2022 3:55 PM CDT Temperature 36.9 C (98.4 F) 12/18/2022 3:55 PM CDT Respiratory Rate 18 12/18/2022 3:55 PM CDT Oxygen Saturation 98% 12/18/2022 3:55 PM CDT Inhaled Oxygen Concentration - - Weight 62.1 kg (137 lb) 12/18/2022 3:55 PM CDT Height 165.1 cm (5' 5 ) 12/18/2022 3:55 PM CDT Body Mass Index 22.8 12/18/2022 3:55 PM CDT Plan of Treatment Health Maintenance Due Date Last Done Comments Hepatitis B Immunization (1 of 3 - 19+ 3-dose series) 2014 SARS-COV-2 Immunization ( season) 2024 10/25/2021, 09/26/2021 Influenza Immunization (Season Ended) 2025 08/12/2021, 07/27/2018, 06/29/2009 Pap Smear 01/29/2026 01/29/2023 DTaP/Tdap/Td Immunization (8 - Td or Tdap) 08/12/2031 08/12/2021, 11/14/2009, 03/04/2001, Additional history exists Respiratory Syncytial Virus (RSV) Immunization (Adult) (1 - 1-dose 75+ series) 2070 Pneumococcal Immunization Combined Aged Out 11/14/2009 No longer eligible based on patient's age to complete this topic Hepatitis C Virus (HCV) Screening Completed 12/04/2024 Human Papillomavirus (HPV) Immunization Aged Out No longer eligible based on patient's age to complete this topic Meningococcal Immunization (ACWY) Aged Out No longer eligible based on patient's age to complete this topic Rotavirus Immunization Aged Out No lo nger eligible based on patient's age to complete this topic Procedures Procedure Name Priority Date/Time Associated Diagnosis Comments PATHOLOGY CYTOLOGY TAX RECORD CLERK 01/29/2023 12:00 AM CDT from Last 3 Months or Most Recently Relevant to Health Maintenance Results * PATHOLOGY CYTOLOGY TAX RECORD CLERK (01/29/2023 12:00 AM CDT) 01/29/2023 us Provider Scan PATHOLOGY/CYTOLOGY ORDERABLES Fi nal Result SCAN from Last 3 Months or Most Recently Relevant to Health Maintenance Insurance MEDICAID [facility] Care Teams Cook Pressure Relationship Specialty Start Date End Date Jennifer Zepeda APRN, GEOSPATIAL ENGINEER [address] [place] [address] PCP - General Advanced Practice Nurse 04/25/20 Lamar Alberts APRN, GEOSPATIAL ENGINEER [address] [facility] [address] [place] [address] Consulting Physician Family Medicine 08/03/18 Dusty Moody MD [address] [facility] [address] [place] [address] Consulting Physician Dermatology 08/03/18
--- OUTSIDE RECORDS SUMMARY | 2025-01-23 21:44 | XMS_ITS | Encounter Summary ---
Author Organization [facility] Address [address] [place] [address] Phone Care Team Providers Care Front Maker Lockstitch Name Role Phone Lamar Alberts APRN, VOLTAGE REGULATOR ASSEMBLER Unavailable Dusty Moody MD Unavailable [phone] Jennifer Zepeda APRN, VOLTAGE REGULATOR ASSEMBLER Primary Care P rovider Reason for Visit * Reason Comments Medication Refill Encounter Details Date Type Department Care Team (Late st Contact Info) Description 03/29/2021 Refill [facility] - Primary Care - [place] [address] [place] [address] Peggy Brandon MD [address] [place] [address] Medication Refill Social History Tobacco Use Types Packs/Day Years Used Date Smoking Tobacco: Never Smokeless Tobacco: Never Alcohol Use Standard Drinks/Week Comments Yes 0 (1 standard drink = 0.6 oz pur e alcohol) every once and awhile PHQ-2 Answer Date Recorded Total Score - Questions 1-9 0 08/0 02/2020 Education Answer Date Recorded What is the highest level of school you have completed or the highest degree you have received? Bachelor's degree (e.g., BA, AB, BS) 01/27/2021 Sexually Active Control Partners Comments Yes Pill, Condom Comments No Sex and Gender Information Value Date Recorded Sex Assigned at Not on file Legal Sex Female 8:25 PM CDT Gender Identity Not on file Sexual Orientation Not on file documented as of this encounter Plan of Treatment Not on file documented as of this encounter Visit Diagnoses Diagnosis Ear pressure, left documented in this encounter Additional Health Concerns Infection Onset Date Last Indicated Resolved Time COVID - 19 04/10/2021 04/10/2021 04/11/2021 7:01 AM CDT COVID - 19 Confirmed 04/10/2021 04/10/2021 021 12:16 AM CDT Assessment Noted Time PHQ-9 Depression Total Score: 0 04/25/20 20 10:00 AM CDT documented as of this encounter Care Teams Front Maker Lockstitch Relationship Specialty Start Date End Date Jennifer Zepeda APRN, VOLTAGE REGULATOR ASSEMBLER [address] [place] [address] PCP - General Advanced Practice Nurse 04/25/20 Lamar Alberts, SAMMIE, VOLTAGE REGULATOR ASSEMBLER [address] [facility] [address] [place] [address] Consulting Physician Family Medicine 08/03/18 Dusty Moody MD [address] [facility] [address] [place] [address] Consulting Physician Dermatology 08/03/18 documented as of this encounter
--- OUTSIDE RECORDS SUMMARY | 2025-01-23 21:44 | XMS_ITS | Encounter Summary ---
Author Organization [facility] Address [address] [place] [address] Phone Care Team Providers Care Emergency Worker Name Role Phone Lamar Alberts APRN, CLASSIFIER TENDER Unavailable [phone] Dusty Moody MD Unavailable [phone] Jennifer Zepeda APRN, CLASSIFIER TENDER Primary Care P rovider Reason for Visit * Reason Comments Medication Refill Encounter Details Date Type Department Care Team (Late st Contact Info) Description 02/18/2021 Refill [facility] - Primary Care - [place] [address] [place] [address] Peggy Brandon MD [address] [place] [address] Medication Refill Social History Tobacco [...] or suspected to have Coronavirus / COVID-19? No / Unsure 01/27/2021 11:27 AM CDT documented as of this encounter Plan of [...] documented as of this encounter Care Teams Emergency Worker Relationship Specialty Start Date End Date Jennifer Zepeda APRN, CLASSIFIER TENDER [address] [place] [address] PCP - General Advanced Practice Nurse 04/25/20 Lamar Alberts APRN, CLASSIFIER TENDER [address] [place] [address] [address] [place] [address] Consulting Physician Family Medicine 08/03/18 Dusty Moody MD [address] [facility] [address] [place] [address] Consulting Physician Dermatology 08/03/18 documented as of this encounter
--- OUTSIDE RECORDS SUMMARY | 2025-01-23 21:44 | XMS_ITS | Data Portability ---
Author Organization [facility] Address [address] [place] [address] Care Team Providers Care Mirror Inspector Name Role Phone COLETTE PERSAUD Primary Care Provider COLETTE PERSAUD Referring Provider Assessment Encounter Date Assessment Date Assessment LastModified by Organization Details LastModified Time 11/12/2017 11/12/2017 1. Counseled regarding prevention of STD's , condom use and prevention. 2. Counseled regarding contraceptive options, risk factors and side effects. 3. Advised avoidance of tobacco, alcohol, and drugs . 4. Counseled regarding folic acid supplementation, calcium needs and prevention of osteoporosis . 5. BSE reviewed and recommended. 6. Follow up in one year or sooner if needed. [email or web address] Not available 11/12/2017 16:06:09 10/20/2018 10/20/2018 1. Counseled regarding prevention of STD's , condom use and prevention. 2. Counseled regarding contraceptive options, risk factors and side effects. 3. Advised avoidance of tobacco, alcohol, and drugs . 4. Counseled regarding folic acid supplementation, calcium needs and prevention of osteoporosis . 5. BSE reviewed and recommended. 6. Follow up in one year or sooner if needed. [email or web address] Not available 10/20/2018 10:50:56 Plan of Treatment Reminders Order Date Submit Date Provider Last Modified By Organization Details Last Modified Time Details Appointments None recorded. Lab pap, IG + HPV, cervical 2019 020 [facility], [address] [place] [address] [place], [address], 0 16:10:29 Referral None recorded. Procedures None recorded. Surgeries None recorded. Imaging None recorded. Medication Orders Sronyx 0.1 mg-20 mcg tablet 2021 022 WIL[facility] Not available 2 15:29:37 Sronyx 0.1 mg-20 mcg tablet 2020 021 INTERFACE Not available 1 11:51:07 Lessina 0.1 mg-20 mcg tablet 2019 020 INTERFACE [facility], [address] [place] [address], [address], [place], [address], 0 10:09:57 Lessina 0.1 mg-20 mcg tablet 2018 019 INTERFACE Not available 9 10:50:36 Vienva 0.1 mg-20 mcg tablet 2017 018 INTERFACE Not available 8 15:32:10 Patient TargetsNo targets recorded. Patient InstructionsNo instructions recorded. Reason for Referral None Reported. Results Created Date Observation Date Name Description Value Unit Range Abnormal Flag Note LastModifiedBy Organization Detail LastModifiedTime 11/01/19 20 11/03/2019 pap, IG + HPV, cervi gilles diagnosis: Commen t NEGAT JOSE FOR INTRA EPITH ELIAL OREN Cobian OR JHONNY HOANG . PREDO MINAN CE OF COCCO BACIL LI CONSI STENT WITH SHIFT IN VAGIN AL EFFIE IS PRESE NT. Not Available [facility] ([facility]) [address] [facility], [place], [address], 11/03/2019 16:10:29 11/01/19 20 11/03/2019 pap, IG + HPV, cervi gilles specimen adequacy: Commen t Satis facto ry for evalu ation . Endoc ervic al and/o r squam ous metap lasti c cells (endo cervi gilles compo nent) are prese nt. Not Available [facility] ([facility]) [address] [facility], [place], [address], 11/03/2019 16:10:29 11/01/19 20 11/03/2019 pap, IG + HPV, cervi gilles clinician provided ICD10: Norm wilkes Z01.4 19 Not Available [facility] ([facility]) [address] [place], [address], 11/03/2019 16:10:29 11/01/19 20 11/03/2019 pap, IG + HPV, cervi gilles performed by: Norm cooley, Oswald wilkes (ASCP ) Not Available [facility] ([facility]) [address] [place], [address], 11/03/2019 16:10:29 11/01/19 20 11/03/2019 pap, IG + HPV, cervi gilles . . Not Available [facility] ([facility]) [address] [place], [address], 11/03/2019 16:10:29 11/01/19 20 11/03/2019 pap, IG + HPV, cervi gilles note: Norm wilkes The Pap smear is a scree halie test desig piedad to aid in the detec tion of timoteo ligna nt and malig nant condi tions of the uteri ne cervi x. It is not a diagn ostic proce dure and shoul d not be used as the sole means of detec ting cervi gilles cance r. Both false -posi tive and false -nega tive repor ts do occur . Not Available [facility] ([facility]) [address] [place], [address], 11/03/2019 16:10:29 11/01/19 20 11/03/2019 pap, IG + HPV, cervi gilles test methodology: oNrm wilkes This liqui d based ThinP rep(R ) pap test was scree piedad with the use of an image guide dar warren. Not Available [facility] ([facility]) [address] [place], [address], 11/03/2019 16:10:29 11/01/19 20 11/03/2019 pap, IG + HPV, cervi gilles HPV aptima Negati ve negati ve This nucle ic acid ampli ficat ion test detec ts fourt een high- risk HPV types (16,1 8,31, 33,35 ,39,4 5,51, 52,56 ,58,5 9,66, 68) witho ut diffe renti ation . Not Available [facility] ([facility]) [address] [facility], [place], [address], 11/03/2019 16:10:29 Result Notes None recorded. 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 Procedures Surgical History Date Name Laterality Status Provider Name and Address Organization Details Recorded Time 08/31/2020 Date of Last Pap Smear completed ALEJANDRA Mata [place] 11/28/2021 15:31:48 Imaging Results None recorded. Procedure Notes None recorded. Medical Equipment None Reported. Allergies Allergen ID Allergen Name Allergen Category Reaction Reaction Severity Criticality Documentation Date Start Date Code Code System Note Provider Name and Address Organization Details Recorded Time 99936 Substance with sulfonami de structure and antibacte rial mechanism of action (substanc e) medicatio n hives Not available Not available 09/25/2014 37058 8003 SNOMED Dia Mccallum null, [place] - [facility] 5 11:43:59 Medications Name Sig Start Date Stop Date Status Note LastModified by Organization Details LastModified Time Depo-Medrol 40 mg/mL suspension for injection Take 1 mL by injection route. 11/12 completed Not Available Not Available Not Available sumatriptan 25 mg tablet TAKE 1 TAB AT ONSET OF MIGRAINE. MAY REPEAT IN 2 HOURS IF NEEDED active Not Available Not Available No t Available Medrol (Ant) 4 mg tablets in a dose pack Take 1 tablet by oral route as directed. 2014 active Not Available Not Available Not Avai lable Diflucan 150 mg tablet Take 1 tablet by oral route for 1 day. 11/09 completed Not Available Not Available Not Available fexofenadin e 180 mg tablet TAKE 1 TABLET BY MOUTH EVERY DAY active Not Available Not Available No t Available Silvadene 1 % topical cream APPLY A 1/16 INCH (1.5 MM) THICK LAYER TO ENTIRE BURN AREA BY TOPICALRO NISQUALLY 2 TIMES PER DAY 11/12 completed Not Available Not Available Not Available Flagyl 500 mg tablet Take 1 tablet twice a day by oral route for 7 days. 11/09 completed Not Available Not Available Not Available tacrolimus 0.1 % topical ointment APPLY ON AFFECTED AREA ON BODY TWICE DAILY NEEDED FOR ALLERGIC REACTION. active Not Available Not Available No t Available Levaquin 500 mg tablet Take 1 tablet every 24 hours by oral route for 7 days. 09/29 completed Not Available Not Available Not Available ibuprofen 600 mg tablet TAKE 1 TABLET BY MOUTH EVERY 8 HOURS active Not Available Not Available No t Available hydrocortis one 2.5 % topical ointment APPLY TO EYELIDS TWICE A DAY FOR 7 DAYS active Not Available Not Available No t Available Sronyx 0.1 mg-20 mcg tablet TAKE 1 TABLET BY MOUTH EVERY DAY (PT NEEDS APPT) active Not Available Not Available No t Available Vitals Date Recorded Body height Body mass index (BMI) Body weight Systolic blood pressure Diastolic blood pressure Provider Name and Address Organization Details Last Updated DateTime 11/12/2017 165.1 cm 19 kg/m2 09350.93 g 108 mm[Hg] 70 mm[Hg] Sandra Vasquez [place] - [facility] 8 15:15:52 Date Recorded Body height Body mass index (BMI) Body weight Systolic blood pressure Diastolic blood pressure Provider Name and Address Organization Details Last Updated DateTime 10/20/2018 165.1 cm 19.7 kg/m2 48961.3 g 118 mm[Hg] 70 mm[Hg] Anju Recio [place] - [facility] 9 10:40:30 Date Recorded Body height Body mass index (BMI) Body weight Respiratory rate Heart rate Body temperature Oxygen saturation Oxygen saturation in Arterial blood by Pulse oximetry Systolic blood pressure Diastolic blood pressure Provider Name and Address Organization Details Last Updated DateTime 0 165.1 cm 20.1 kg/m2 40969.9 6 g 98.1 /min 86 /min 16 [degF] 99 % 99 % 114 mm[Hg] 68 mm[Hg] Irene Nava MA [facility] 0 09:46:08 Date Recorded Body height Body mass index (BMI) Body weight Provider Name and Address Organization Details Last Updated DateTime 11/12/2020 165.1 cm 21.6 kg/m2 00407.01 g Anju Recio MA [facility] 11/12/2020 11:32:31 Date Recorded Body height Body mass index (BMI) Body weight Systolic blood pressure Diastolic blood pressure Provider Name and Address Organization Details Last Updated DateTime 11/28/2021 165.1 cm 22.1 kg/m2 08084.79 g 120 mm[Hg] 70 mm[Hg] ALEJANDRA Mata [facility] 2 15:31:18 Social History Question Answer Notes LastModified by Organizat ion Details LastModified Time Tobacco Smoking Status Never Smoker Not Available [facility] 07/23/2020 03:39:28 What Was The Date Of Your Most Recent Tobacco Screening? 11/28/2021 Information not available 11/28/2021 Has Tobacco Cessation Counseling Been Provided? Yes Information not available 11/28/2021 On What Date Was Tobacco Cessation Counseling Provided? 11/28/2021 Information not available 11/28/2021 Sex: Female Functional Status None recorded. Mental Status None recorded. Family History Relationship Description Onset Age of this Age Resolved Age Notes LastModified by Organization Details LastModified Time Father Hypertensive disorder asmitaichert Not available 2015 14:41:10 Father Hypercholest erolemia kristie Not available 2015 14:41:10 Medical History Condition Response Asthma Y Gynecological History Statement/Question Response Date of LMP 11/05/2020 Sexually Active? Y Menses Monthly Y STIs/STDs N Date of Last Pap Smear 08/31/2020 Duration of Flow (days) 3 Age at Menarche 13 Current Control Method BCPs LMP Definite Obstetrics History GPAL:G 0 P 0 0 0 0 Past Encounters Encounter ID Performer Location Encounter Start Date Encounter Closed Date Diagnosis/Indication Diagnosis SNOMED-CT Code Diagnosis ICD10 Code Diagnosis Note [id number] MD [facility] ([facility] 122) [address] [facility] [place] [address] 09/25/2014 11:20:15 09/25/2014 13:13:44 Gynecologic examination 94890076 Uses contraception 27435197 [id number] [facility] [address] [place] [address] 09/11/2015 10:21:09 09/11/2015 10:42:08 Macular eruption 103880340 R21 [id number] Lori Rdz [facility] [place] [facility] ([facility] 122) [address] [place] [address] 09/30/2015 14:25:53 09/30/2015 16:58:16 Gynecologic examination 72530211 Z01.419 Surveillan ce of oral contraception 505018271 Z30.41 [id number] Lori Rdz [facility] ([facility] 122) [address] [place] [address] 10/21/2016 13:55:25 10/21/2016 17:23:11 Gynecologic examination 94258757 Z01.419 Vaginal discharge 386109 006 N89.8 Surveillan ce of oral contraception 437002733 Z30.41 [id number] HARVEY Arevalo [address] [place] [address] 11/09/2016 13:39:39 11/09/2016 14:42:42 Acute purulent bronchitis 917944020 J20.1 [id number] MD Nena [facility] [address] [place] [address] 09/29/2017 10:37:33 09/29/2017 14:31:35 Eczema 79354029 L20.89 [id number] Lamar Alberts [facility] [place] [facility] ([facility] [address]) [address] [facility] [place] [address] 11/12/2017 15:09:48 11/15/2017 12:50:40 Contraception care management 750151520 Z30.9 Gynecologi c examination 98917729 Z01.663 [id number] Lamar Alberts [facility] [address] OB [address] [place] [address] 10/20/2018 10:32:23 10/20/2018 10:52:33 Contraception care management 885522329 Z30.9 Gynecologi c examination 14510550 Z01.595 [id number] [facility] [address] [facility] [place] [address] 11/01/2019 09:29:32 11/02/2019 14:22:15 Gynecologic examination 11184145 Z01.419 1. Counseled regarding prevention of STD's , condom use and prevention . 2. Counseled regarding contracept jose options, risk factors and side effects. 3. Advised avoidance of tobacco, alcohol, and drugs . 4. Counseled regarding folic acid supplement ation, calcium needs and prevention of osteoporos is . 5. BSE reviewed and recommende d. 6. Follow up in one year or sooner if needed. Contracept ion care management 427247990 Z30.9 1. Reviewed all forms of control with patient including risk factors and side effects. 2. Counseled on STD transmissi on and prevention , condom use and prevention . 3. Pt would like to continue with OCP. Educated on correct use and side effects. Will send rx to pharmacy. 4. Follow up for med check in 12 months, sooner if needed. [id number] Lamar Alberts [facility] 14 OB [address] [facility] [place] [address] 11/12/2020 11:31:27 11/14/2020 11:12:57 Contraception care management 267356299 Z30.9 1. Reviewed all forms of control with patient including risk factors and side effects. 2. Counseled on STD transmissi on and prevention , condom use and prevention . 3. Pt would like to continue with OCP. Educated on correct use and side effects. Will send rx to pharmacy. 4. Follow up for med check in 12 months, sooner if needed. [id number] Lamar Alberts [employer] 14 OB [address] [place] [address] 11/28/2021 15:14:18 12/01/2021 04:56:50 Gynecologic examination 37354162 Z01.419 1. Counseled regarding prevention of STD's , condom use and prevention . 2. Counseled regarding contracept jose options, risk factors and side effects. 3. Advised avoidance of tobacco, alcohol, and drugs . 4. Counseled regarding folic acid supplement ation, calcium needs and prevention of osteoporos is . 5. BSE reviewed and recommende d. 6. Follow up in one year or sooner if needed. Contracept ion care management 500965131 Z30.9 1. Reviewed all forms of control with patient including risk factors and side effects. 2. Counseled on STD transmissi on and prevention , condom use and prevention . 3. Pt would like to continue with OCP. Educated on correct use and side effects. Will send rx to pharmacy. 4. Follow up for med check in 12 months, sooner if needed. Health Concerns Section Related Observation LastModified by Organization Detai ls LastModified Time None Recorded Concern Status LastModified by Organization Details LastModified Time None Recorded Advance Directives Directive None Recorded Payers Encounter Date Sequence Insurance Name Policy Number Policy Servin Covered Member ID Servin Member ID Guarantor Name 11/12/2017 1 [place] Shelby Velasquez [id number] Shelby Velasquez 10/20/2018 1 [employer]EF[employer] (PPO) [id number] Dania Velasquez [id number] Shelby Velasquez 11/01/2019 1 [employer] (POS) [id number] Shelby Velasquez [id number] Shelby Velasquez 11/12/2020 1 [employer] [id number] Shelby Velasquez [id number] Shelby Velasquez 11/28/2021 1 [employer] BET[place] - [place] ON OR AFTER 2020 (MEDICAID REPLACEMENT - HMO) Shelby Velasquez [id number] Shelby Velasquez Notes Date Note Type Note Provider Name and Address Organization Details Recorded Time 11/12/2017 text/html Annual GYNReport ed bypatient.History:no gynecologic complaints Menstrual cycle:Normal menses Urinary symptoms:No hematuria; No incontinence Vulva:No genital lesion Vagina:Normal vaginal discharge Breast:No breast pain; No breast lump; No nipple discharge Current Contraception:Satisf ied with current contraception; Oral contraceptives Sexual complaints:No sexual complaints; No pain during intercourse; Normal libido Menopausal Symptoms:No menopausal symptoms; Normal vaginal lubrication Psychological symptoms:No depression; No anxiety; No PMDD Preventive measures:Encourage self breast examination; Encourage regular exercise; Encourage no tobacco use No complaints. Would like refill on ocp. RE Niño Attn: Accounting[address] [place], [address], [facility] 11/12/2017 16:06:46 10/20/2018 text/html Annual GYNReport ed bypatient.History:no gynecologic complaints Menstrual cycle:Normal menses Urinary symptoms:No hematuria; No incontinence Vulva:No genital lesion Vagina:Normal vaginal discharge Breast:No breast pain; No breast lump; No nipple discharge Current Contraception:Satisf ied with current contraception; Oral contraceptives Sexual complaints:No sexual complaints; No pain during intercourse; Normal libido Menopausal Symptoms:No menopausal symptoms; Normal vaginal lubrication Psychological symptoms:No depression; No anxiety; No PMDD Preventive measures:Encourage self breast examination; Encourage regular exercise; Encourage no tobacco use Doing well with no complaints. RE Niño Attn: Accounting[address] [place], [address], [facility] 10/20/2018 10:52:02 11/01/2019 text/html Annual GYNReport ed bypatient.History:no gynecologic complaints Menstrual cycle:Normal menses Urinary symptoms:No hematuria; No incontinence Vulva:No genital lesion Vagina:Normal vaginal discharge Breast:No breast pain; No breast lump; No nipple discharge Current Contraception:Satisf ied with current contraception; Oral contraceptives Sexual complaints:No sexual complaints; No pain during intercourse; Normal libido Menopausal Symptoms:No menopausal symptoms; Normal vaginal lubrication Psychological symptoms:No depression; No anxiety; No PMDD Preventive measures:Encourage self breast examination; Encourage regular exercise; Encourage no tobacco use Doing well with no complaints. -last pap 10/21/16 wnl- on ocp doing well RE Niño Attn: Accounting[address] [place], [address], [facility] 11/01/2019 10:05:02 11/12/2020 text/html Annual GYNReport ed bypatient.History:no gynecologic complaints Menstrual cycle:Normal menses Urinary symptoms:No hematuria; No incontinence Vulva:No genital lesion Vagina:Normal vaginal discharge Breast:No breast pain; No breast lump; No nipple discharge Current Contraception:Satisf ied with current contraception; Oral contraceptives Sexual complaints:No sexual complaints; No pain during intercourse; Normal libido Menopausal Symptoms:No menopausal symptoms; Normal vaginal lubrication Psychological symptoms:No depression; No anxiety; No PMDD Preventive measures:Encourage self breast examination; Encourage regular exercise; Encourage no tobacco use Doing well with no complaints. -last pap 10/21/16 wnl- on ocp doing well RE Niño Attn: Accounting[address] [place], [address], [facility] 11/12/2020 11:51:37 11/28/2021 text/html Annual GYNReport ed bypatient.History:no gynecologic complaints Menstrual cycle:Normal menses Urinary symptoms:No hematuria; No incontinence Vulva:No genital lesion Vagina:Normal vaginal discharge Breast:No breast pain; No breast lump; No nipple discharge Current Contraception:Satisf ied with current contraception; Oral contraceptives Sexual complaints:No sexual complaints; No pain during intercourse; Normal libido Menopausal Symptoms:No menopausal symptoms; Normal vaginal lubrication Psychological symptoms:No depression; No anxiety; No PMDD Preventive measures:Encourage self breast examination; Encourage regular exercise; Encourage no tobacco use Doing well with no complaints. -last pap 11/01/19 wnl- on ocp doing well RE Niño Attn: Accounting[address] [place], [address], [facility] 11/28/2021 15:37:27 OBGyn Episode No OBEpisode recorded.
[2025-01-23 21:52] VITALS: BP 116/78; PULSE 78; RESP 15; TEMP 36.3; O2SAT 99
[2025-01-23 22:13] LABS: Add Urine Microscopic? NO; Appearance Urine Clear (Clear); Bilirubin Urine Negative (Negative); Blood Urine Negative (Negative); Color Urine Yellow (Yellow); Glucose Urine UA Negative (Negative); Ketones Urine Negative (Negative); Leukocyte Esterase Ur Negative LEU/UL (Negative); Nitrate Urine Negative (Negative); Protein Urine Negative (Negative); Specific Grav Ur 1.009 (1.001-1.035); Urobilinogen Urine 0.2 mg/dL (<2.0)
[2025-01-23 22:34] LABS: BEDSIDEPREGUCG Positive (Negative)
[2025-01-23 22:45] VITALS: BP 110/68; PULSE 71; RESP 21; O2SAT 100
--- OUTSIDE RECORDS SUMMARY | 2025-01-23 22:53 | XMS_ITS | Encounter Summary ---
Author Organization [facility] Address [address] [place] [address] Phone Care Team Providers Care Duty Officer Name Role Phone Lamar Alberts APRN, CIVIL ENGINEER Unavailable [phone] Dusty Moody MD Unavailable [phone] Jennifer Zepeda APRN, CIVIL ENGINEER Primary Care P rovider Reason for Visit * Reason Comments Medication Refill Encounter Details Date Type Department Care Team (Late st Contact Info) Description 02/18/2021 Refill [facility] - Primary Care - Mae [address] [place] [address] Peggy Brandon MD [address] [place] [address] Medication Refill Social History Tobacco [...] documented as of this encounter Care Teams Duty Officer Relationship Specialty Start Date End Date Jennifer Zepeda APRN, CIVIL ENGINEER [address] [place] [address] PCP - General Advanced Practice Nurse 04/25/20 Lamar Alberts APRN, CIVIL ENGINEER [address] [place] [address] [address] [place] [address] Consulting Physician Family Medicine 08/03/18 Dusty Moody MD [address] [facility] [address] [place] [address] Consulting Physician Dermatology 08/03/18 documented as of this encounter
--- OUTSIDE RECORDS SUMMARY | 2025-01-23 22:53 | XMS_ITS | Referral Summary ---
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
--- OUTSIDE RECORDS SUMMARY | 2025-01-23 22:53 | XMS_ITS | Encounter Summary ---
Author Organization [facility] Address [address] [place] [address] Phone Care Team Providers Care Court Transcriber Name Role Phone Lamar Alberts APRN, CNP Unavailable Dusty Moody MD Unavailable [phone] Jennifer Zepeda APRN, CNP Primary Care P rovider Reason for Visit * Reason Comments Medication Refill Encounter Details Date Type Department Care Team (Late st Contact Info) Description 06/21/2020 Refill [facility] - Primary Care - Maria [address] [place] [address] Jennifer Zepeda APRN, CNP [address] [place] [address] Medication Refill Social History Tobacco [...] documented as of this encounter Care Teams Court Transcriber Relationship Specialty Start Date End Date Jennifer Zepeda APRN, CLINICAL SAFETY SPECIALIST [address] [place] [address] PCP - General Advanced Practice Nurse 04/25/20 Lamar Alberts APRN, CLINICAL SAFETY SPECIALIST [address] [facility] [address] [place] [address] Consulting Physician Family Medicine 08/03/18 Dusty Moody MD [address] [address] Consulting Physician Dermatology 08/03/18 documented as of this encounter
--- OUTSIDE RECORDS SUMMARY | 2025-01-23 22:53 | XMS_ITS | Encounter Summary ---
Author Organization [facility] Address [address] [place] [address] Phone Care Team Providers Care Finance Assistant Name Role Phone Lamar Alberts APRN, CNP Unavailable Dusty Moody MD Unavailable [phone] Jennifer Zepeda APRN, CNP Primary Care P rovider Reason for Visit * Reason Comments Medication Refill Encounter Details Date Type Department Care Team (Late st Contact Info) Description 05/19/2020 Refill [facility] - Primary Care - [address] [place] [address] Jennifer Zepeda APRN, CNP [address] [place] [address] Medication Refill Social History Tobacco [...] Primary Care Arlene Galvan February, Upcoming Appointments ADMINISTRATIVE OPERATIONS COORDINATOR - Recent and Past Visits Recent Visits Date Type Provider Dept 04/25/20 Office Visit Jennifer Zepeda, CUT OUT STITCHER, STACKER TENDER [facility] Showing recent visits within past 460 days [...] documented as of this encounter Care Teams Finance Assistant Relationship Specialty Start Date End Date HuJennifer lance APRN, STACKER TENDER [address] [place] [address] PCP - General Advanced Practice Nurse 04/25/20 Lamar Alberts APRN, STACKER TENDER [address] [facility] [address] [place] [address] Consulting Physician Family Medicine 08/03/18 Dusty Moody MD [address] [facility] [address] [place] [address] Consulting Physician Dermatology 08/03/18 documented as of this encounter
--- OUTSIDE RECORDS SUMMARY | 2025-01-23 22:53 | XMS_ITS | Clinical Summary ---
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
--- OUTSIDE RECORDS SUMMARY | 2025-01-23 22:53 | XMS_ITS | Clinical Summary ---
Author Organization [facility] Address [address] [place] [address] Phone Care Team Providers Care Drop Wire Builder Name Role Phone Lamar Alberts APRN, INSIDE ACCOUNT REPRESENTATIVE Unavailable Dusty Moody MD Unavailable [phone] Jennifer Zepeda APRN, INSIDE ACCOUNT REPRESENTATIVE Primary Care P rovider Allergies Active Allergy [...] hours. 30 Tablet 1 01/27/2021 Active fexofenadine (SHRILEY) 180 MG Tablet Take 1 Tablet by mouth daily. 90 Tablet 1 03/11/2022 Active Cwpwankp-Kmb-Ey- FA ( 1 + IRON PO) Active [...] 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, ASSISTANT MERCHANDISE MANAGER, SANDRA) 12/14/2022 Sexually Active Control Partners Comments [...] Priority Date/Time Associated Diagnosis Comments PATHOLOGY CYTOLOGY LOG SORTING SUPERVISOR 01/29/2023 12:00 AM CDT from Last 3 Months or Most Recently Relevant to Health Maintenance Results * PATHOLOGY CYTOLOGY LOG SORTING SUPERVISOR (01/29/2023 12:00 AM CDT) 01/29/2023 us Provider Scan PATHOLOGY/CYTOLOGY ORDERABLES Fi nal Result SCAN from Last 3 Months or Most Recently Relevant to Health Maintenance Insurance MEDICAID [employer] [facility] Care Teams Drop Wire Builder Relationship Specialty Start Date End Date Jennifer Zepeda APRN, INSIDE ACCOUNT REPRESENTATIVE [address] [place] [address] PCP - General Advanced Practice Nurse 04/25/20 Lamar Alberts APRN, INSIDE ACCOUNT REPRESENTATIVE [address] [facility] [address] [place] [address] Consulting Physician Family Medicine 08/03/18 Dusty Moody MD [address] [facility] [address] [place] [address] Consulting Physician Dermatology 08/03/18
--- OUTSIDE RECORDS SUMMARY | 2025-01-23 22:53 | XMS_ITS | Encounter Summary ---
Author Organization [facility] Address [address] [place] [address] Phone Care Team Providers Care Automotive Brake Technician Name Role Phone Lamar Alberts APRN, VICE PRESIDENT PAYMENT Unavailable Dusty Moody MD Unavailable [phone] Jennifer Zepeda APRN, VICE PRESIDENT PAYMENT Primary Care P rovider Reason for Visit * Reason Comments Medication Refill Encounter Details Date Type Department Care Team (Late st Contact Info) Description 03/29/2021 Refill [facility] - Primary Care - [place] [address] [place] [address] Peggy Brandon MD [address] [place] [address] Medication Refill Social History Tobacco [...] documented as of this encounter Care Teams Automotive Brake Technician Relationship Specialty Start Date End Date Jennifer Zepeda APRN, VICE PRESIDENT PAYMENT [address] [place] [address] PCP - General Advanced Practice Nurse 04/25/20 Lamar Alebrts, SAMMIE, VICE PRESIDENT PAYMENT [address] [facility] [address] [place] [address] Consulting Physician Family Medicine 08/03/18 Dusty Moody MD [address] [facility] [address] [place] [address] Consulting Physician Dermatology 08/03/18 documented as of this encounter
[2025-01-23 22:55] LABS: Basophils Percent Auto 0.3 % (0.2-1.2); Eosinophils Absolute Auto 0.2 K/mm3 (0-0.3); Eosinophils Percent Auto 1.4 % (0-4.4); Hematocrit 34.4 % (37.0-47.0); Hemoglobin 11.3 g/dL (12.0-15.0); Immature Granulocyte Absolute 0.19 K/mm3 (0.00-0.031); Immature Granulocyte Percent A 1.6 % (0-0.5); Lymphocytes Absolute Auto 2.61 K/mm3 (0.9-3.2); Lymphocytes Percent Auto 21.9 % (18.3-44.2); Mean Corpuscular HGB Conc 32.8 g/dl (32-36); Mean Corpuscular Hemoglobin 29.9 pg (26-34); Mean Platelet Volume 11.1 fl (7.4-10.4); Monocytes Absolute Auto 0.7 K/mm3 (0.1-0.6); Neutrophils Absolute Auto 8.2 K/mm3 (1.3-6.7); Neutrophils Percent Auto 68.8 % (45.5-73.1); Platelet Count Result 192 k/mm3 (150-375); Red Blood Count 3.78 M/mm3 (4.2-5.4); Red Cell Distribution Width 13.2 % (11.5-14.5); White Blood Count 11.9 K/mm3 (4.5-10.0)
--- NOTE | 2025-01-23 23:12 | ECG_ITS ---
Test Date: 2025-01-23 23:56:52 Measurements Intervals [place] Rate: 68 P: 51 WV: 143 QRS: 27 QRSD: 90 T: 36 QT: 398 QTc: 424 Interpretive Statements SINUS RHYTHM NORMAL ELECTROCARDIOGRAM No previous ECG available for comparison Electronically Signed On 01-24-2025 07:25:03 CDT by Babar Espinoza M.D.
[2025-01-23 23:14] LABS: Alanine Aminotransferase 11 U/L (6-35); Albumin Level 4.1 g/dL (3.5-5.1); Alkaline Phosphatase 60 U/L (38-126); Anion Gap 8 mmol/L (4-12); Aspartate Amino Transferase 16 U/L (14-36); Bilirubin,Total 0.1 mg/dL (0.2-1.3); Blood Urea Nitrogen 7 mg/dL (7-17); Calcium 9.5 mg/dL (8.4-10.2); Carbon Dioxide 25 mmol/L (22-30); Chloride 102 mmol/L (98-107); Estimated CRCL calculation 130 ml/min; Estimated Glomerular Filt Rate > 60; Glucose 110 mg/dL (65-110); Potassium 3.4 mmol/L (3.4-5.0); Sodium 135 mmol/L (137-145)
[2025-01-23 23:15] VITALS: BP 101/61; PULSE 69; RESP 18; O2SAT 100
--- NOTE | 2025-01-23 23:17 | ED.FEMALEGU ---
HPI - Female Genitourinary General Chief complaint: Urogenital-Female Stated complaint: 19 weeks preg -left side/back/flank pain Time Seen by Provider: 01/23/25 22:38 History of Present Illness HPI Narrative: 29-year-old female who is , currently 19 weeks , presents to the emergency department for left sided abdominal pain that started a few weeks ago. Patient thought that the pain was due to constipation from . States yesterday the pain migrated to her left flank and this morning while she was urinating she felt a sharp pain in her left flank which caused her to become diaphoretic, lightheaded and ?saw stars?. She did not lose consciousness. She states she has had pain intermittently in the left flank that wraps around to the left side of her abdomen. She is not taking anything for pain. She denies dysuria, hematuria, concern for STDs, fever, diarrhea. Last bowel movement was yesterday and normal. Denies history of kidney stones. Her hearing and speech assistant is Reshma Olea. She has had a confirmed IUP. Denies chest pain and dyspnea. Related Data Home Medications ?Medication ?Instructions ?Recorded ?Confirmed ?Last Taken ?Type prenat.vits,gilles,qov-voym-hkpdw 1 tablet PO HS 10/09/23 10/17/23 10/17/23 00:00 History Allergies Allergy/AdvReac Type Severity Reaction Status Date / Time gold Au 198 Allergy Itching Verified 01/23/25 21:42 Sulfa (Sulfonamide Allergy Hives Verified 01/23/25 21:42 Antibiotics) Paraphenylenediamine (PPD) Allergy Itching Uncoded 01/23/25 21:42 Review of Systems Review of Systems: All systems reviewed & are unremarkable except as noted in HPI and below [facility] Family History Family History Grandparent Heart disease Social History Social History Smoking status: Never smoker Substance use: never Do You Feel Safe in your Home?: No Lack of Transportation: No Lack of Food: Never True Current Housing: I Have Housing Concerned About Future Housing: No Difficulty Paying Gas/Electric Bills: No Difficulty Paying for Meds: No Currently Unemployed: No Education: Master's Degree or Higher Difficulty w/ Childcare or Family Care: No Spiritual care concerns: No Exam Narrative: GENERAL: Well-appearing, well-nourished, and in no acute distress. HEAD: Normocephalic, atraumatic. EYES:EOMI. ENT: Nares clear, no rhinorrhea or epistaxis. Mucous membranes moist. NECK: Supple. CHEST: Clear to auscultation. No respiratory distress. HEART: Regular rate and rhythm. No murmur heard. Normal peripheral pulses. ABDOMEN: Normoactive bowel sounds. Gravid abdomen with palpable uterus just inferior to the umbilicus. Minimal tenderness to the left lower quadrant and left upper quadrant with no rebound, guarding or rigidity. Left CVA tenderness. EXTREMITIES: Normal range of motion. No edema. SKIN: Warm, dry, no rash. NEURO: No focal deficits. Alert and oriented x3 Course Vital Signs Vital signs: Vital Signs Temperature 97.4 F L 01/23/25 21:52 Pulse Rate 78 01/23/25 21:52 Respiratory Rate 15 01/23/25 21:52 Blood Pressure 116/78 01/23/25 21:52 Pulse Oximetry 99 01/23/25 21:52 Oxygen Delivery Room Air 01/23/25 21:52 Temperature 97.4 F L 01/23/25 21:52 Pulse Rate 72 01/23/25 23:45 Respiratory Rate 19 01/23/25 23:45 Blood Pressure 110/69 01/23/25 23:45 Pulse Oximetry 100 01/23/25 23:45 Oxygen Delivery Room Air 01/23/25 21:52 MDM - Female Genitourinary MDM Narrative Medical decision making narrative: 29-year-old female presents to the emergency department for left-sided abdominal pain for several weeks, left flank pain over the past day. States she developed a sharp pain in her left flank while urinating which caused her to become diaphoretic, lightheaded and ?saw stars?. Triage vitals are stable. Patient is afebrile and nontoxic appearing resting comfortably in exam bed. Exam is notable for the above. CBC with leukocytosis of 11.9, no bandemia. Hemoglobin is 11.3 which is improved from most recent hemoglobin of 10.3. Chemistries are unremarkable with no significant electrolyte derangements, normal kidney function. UA is unremarkable with no hematuria, no findings consistent with UTI. EKG shows normal sinus rhythm with a rate of 60 ppm, normal VA interval, normal QRS duration, normal QTC, no ischemic changes. heart tones normal, ranging between 135-145bpm. Patient and at bedside updated on results. She given Tylenol. She is resting comfortably in exam bed. Patient's episode of diaphoresis, lightheadedness and presyncope is consistent with vasovagal nature. I did discuss differential diagnosis of left-sided abdominal pain/flank pain which includes MSK etiology, round ligament strain, UTI, pyelonephritis, kidney stone. Discussed UA is reassuring and shows no evidence of UTI/pyelo, no RBCs to indicate kidney stone but did discuss that this is still a possibility. Patient agrees to forego CT abdomen pelvis at this time given risks and benefits . She states she did speak with Dr. Velez earlier today who did state that he will try to see her in clinic tomorrow. She feels comfortable with discharge home tonight and agrees to close follow-up. I did discuss that they can perform an outpatient MRI or renal ultrasound to assess for kidney stones if her pain persists. Will provide Tylenol p.r.n. for pain. Discussed strict ED return precautions. She is agreeable with the plan verbalized understanding. Discharged in stable condition. Lab Data 01/23/25 22:47 01/23/25 22:47 Labs: Lab Results 01/23/25 01/23/25 01/23/25 Range/Units 22:02 22:32 22:47 WBC 11.9 H (4.5-10.0) K/mm3 RBC 3.78 L (4.2-5.4) M/mm3 Hgb 11.3 L (12.0-15.0) g/dL Hct 34.4 L (37.0-47.0) % MCV 91.0 (80-100) fl MCH 29.9 (26-34) pg MCHC 32.8 (32-36) g/dl RDW 13.2 (11.5-14.5) % Plt Count 192 (150-375) k/mm3 MPV 11.1 H (7.4-10.4) fl Immature Gran % (Auto) 1.6 H (0-0.5) % Neut % (Auto) 68.8 (45.5-73.1) % Lymph % (Auto) 21.9 (18.3-44.2) % Ocean % (Auto) 6.0 (2.6-8.5) % Eos % (Auto) 1.4 (0-4.4) % Baso % (Auto) 0.3 (0.2-1.2) % Lymph # (Auto) 2.61 (0.9-3.2) K/mm3 Ocean # (Auto) 0.7 H (0.1-0.6) K/mm3 Eos # (Auto) 0.2 (0-0.3) K/mm3 Baso # (Auto) 0.0 (0.0-0.1) K/mm3 Abs Immat Gran (auto) 0.19 H (0.00-0.031) K/mm3 Absolute Neuts (auto) 8.2 H (1.3-6.7) K/mm3 Absolute Nucleated RBC 0.000 (0.0-0.012) K/mm3 Nucleated RBC % 0.0 (0.0-0.2) % Sodium 135 L (137-145) mmol/L Potassium 3.4 (3.4-5.0) mmol/L Chloride 102 (98-107) mmol/L Carbon Dioxide 25 (22-30) mmol/L Anion Gap 8 (4-12) mmol/L BUN 7 (7-17) mg/dL Creatinine 0.50 L (0.7-1.0) mg/dL Estim Creat Clear Calc 130 ml/min Estimated GFR > 60 (59 - ) Glucose 110 (65-110) mg/dL Calcium 9.5 (8.4-10.2) mg/dL Total Bilirubin 0.1 L (0.2-1.3) mg/dL AST 16 (14-36) U/L ALT 11 (6-35) U/L Alkaline Phosphatase 60 (38-126) U/L Total Protein 7.0 (6.3-8.2) g/dL Albumin 4.1 (3.5-5.1) g/dL Urine Color Yellow (Yellow) Urine Appearance Clear (Clear) Urine pH 6.0 (5.0-9.0) Ur Specific [place] 1.009 (1.001-1.035) Urine Protein Negative (Negative) mg/dL Urine Glucose (UA) Negative (Negative) mg/dL Urine Ketones Negative (Negative) mg/dL Ur Blood (Man) Negative (Negative) Urine Nitrate Negative (Negative) Urine Bilirubin Negative (Negative) Urine Urobilinogen 0.2 (<2.0) mg/dL Leukocyte Esterase Rfl Negative (Negative) PETAR/UL POC Urine HCG, Qual Positive (Negative) Discharge Plan Discharge Clinical Impression: Vasovagal episode, Left flank pain Patient Disposition: Home Condition: Stable Instructions: Antibiotic Form, Flank Pain (ED) Additional Instructions: Your evaluated in the emergency department for left-sided abdominal pain and left flank pain. Your workup here is reassuring. He had no evidence of urinary tract infection, there is no blood in your urine. We did discuss that there is still possibility that he may have a kidney stone, however agreed to forego a CT abdomen pelvis at this time due to risk of radiating the fetus. Please follow-up closely with your OBGYN later today for further evaluation as she may need outpatient MRI or ultrasound for further evaluation. Take Tylenol as needed for pain. Return to the emergency department if you develop worsening abdominal pain, vaginal bleeding, fever, you are unable to tolerate food or fluids, or other concerning symptoms. Patient Language: Greek Prescriptions: New acetaminophen 500 mg capsule 500 mg PO Q6H PRN (Reason: pain) Qty: 14 0RF No Action prenat.vits,gilles,soc-uxnu-raysq Tablet 1 tablet PO HS ibuprofen 600 mg Tablet 600 mg PO Q6H PRN (Reason: Cramping) Qty: 30 0RF Follow-up/Referrals: Reshma Olea CNM [Primary Care Provider] -
[2025-01-23] MEDS: ACETAMINOPHEN 325 MG TABLET 650 MG PO (23:37)
--- NOTE | 2025-01-23 23:40 | PC.NURSE ---
Received report from FRANCIE Cid for cont. of care. Pt AOx4 sitting on stretcher, c/o 3/10 (L) side abdominal pain radiating to back. Pt states this AM she felt pain with urination, denies blood in urine. Refer to MAR for medication adm.
[2025-01-23 23:45] VITALS: BP 110/69; PULSE 72; RESP 19; O2SAT 100
--- NOTE | 2025-01-24 00:31 | PC.NURSE ---
HR range from 135-146 via Doppler
== END 2025-01-24 00:44 | disposition home or self-care (01) ==
PROVIDERS: Emergency Medicine; Emergency Provider Physician Assistant; PCP Advanced Practice Midwife
DX: R55 Syncope and collapse (principal); R10.9 Unspecified abdominal pain; O26.892 Other specified pregnancy related conditions, second trimester; Z3A.19 19 weeks gestation of pregnancy
CPT/HCPCS: 36415; 80053; 81003; 81025; 85025; 93005; 99283; A9270

== ENCOUNTER 2025-01-24 13:55 | Outpatient (CLI) | payer BC, SELFPAY ==
--- NOTE | ~2025-01-24 | US_ITS ---
EXAMINATION: US renal BI DATE: 01/24/2025 14:48 INDICATION: Abdominal pain TECHNIQUE: Multiple ultrasound grayscale images of the kidneys were obtained. COMPARISON: None. FINDINGS: The right kidney measures 11.5 x 5.4 x 4.5 cm. The left kidney measures 11.7 x 5.2 x 5.4 cm. The kidn eys demonstrate normal echogenicity. Mild hydronephrosis of both kidneys. No stones identified. The bladder is normal with bilateral ureteral jets visualized on color Doppler.. IMPRESSION: 1. Mild bilateral hydronephrosis but with bilateral ureteral jets visualized in the bladder on color Doppler. Reviewed, dictated and finalized at location A. IMPRESSION: 1. Mild bilateral hydronephrosis but with bilateral ureteral jets visualized i n the bladder on color Doppler.
--- OUTSIDE RECORDS SUMMARY | 2025-01-24 14:08 | XMS_ITS | Clinical Summary ---
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
--- OUTSIDE RECORDS SUMMARY | 2025-01-24 14:08 | XMS_ITS | Continuity of Care Document ---
Author Organization [facility] [place] Address [address] [place] [address] Care Team Providers Care Jack Prizer Name Role Phone ONESIMO UGALDE Primary Care Provider Assessment No assessment recorded. Plan of Treatment Reminders Order Date Submit Date Provider Last Modified By Organization Details Last Modified Time Details Appointments OB PROBLEM 2024 01:00P M Reshma Olea CNM Not available Not available Not available MED CHECK 2024 01:30P M Reshma Olea CNM Not available Not available Not available U/S OB BASELIN E 2024 01:30P M ULTRASOUND Not available Not available Not available OB ROUTINE 2024 02:30P M Reshma Olea CNM Not available Not available Not available Lab None recorde d. Referral None recorde d. Procedures None recorde d. Surgeries None recorde d. Imaging None recorde d. Medication Orders None recorde d. Patient TargetsNo targets recorded. Patient InstructionsNo instructions recorded. Reason for Referral None Reported. Problems Name Problem SNOMED Code Status Onset Date Resolution Date Notes Provider Name and Address Organization Details Recorded Time Pregnanc y 74517488 Completed 202210/29/2023 Maryanne booth, [facility] 5 15:42:28 Mixed anxiety and depressi ve disorder 632969986 Active 2023 Alisa booth, [facility] 4 14:41:33 Pregnanc y 43132195 Active 2024 Maryanne Velasquez [facility] 5 15:42:28 Pregnanc y-induce d hyperten odette 34212332 Active history of GHTN - Baseline labs at 20wks Viviana Charlton [facility] 5 11:34:10 Pregnanc y-induce d hyperten odette 10514343 Active history of GHTN - Baseline labs at 20wks Viviana Charlton [facility] 5 11:34:10 Problem Notes None recorded. Procedures Surgical History Date Name Laterality Status Provider Name and Address Organization Details Recorded Time 4 Date of Last Pap Smear completed [facility] 06/05/2024 12:12:50 4 Date of Last Mammogram completed [facility] 06/05/2024 12:13:44 Imaging Results None recorded. Procedure Notes None recorded. Medical Equipment None Reported. Allergies Allergen ID Allergen Name Allergen Category Reaction Reaction Severity Criticality Documentation Date Start Date Code Code System Note Provider Name and Address Organization Details Recorded Time Substance with sulfonami de structure and antibacte rial mechanism of action (substanc e) medicatio n hives Not available Not available 01/29/2023 89948 [id number] SNOMED Dania Baker [facility] 3 15:02:48 45419 gold Au 198 environme nt itching Not available Not available 01/29/2023 36617 UNK Dania Baker [facility] 3 15:02:48 Medications Name Sig Start [...] and Address Organization Details Last Updated DateTime 01/24/2025 167.64 cm 22.3 kg/m2 39788.75 g 114 mm[Hg] 69 mm[Hg] Alisa Padilla [facility] 14:09:54 Social History Question Answer Notes LastModified by Organizat ion Details LastModified Time Tobacco Smoking Status Never Smoker [place] emmy, [facility] 10/06/2023 15:12:08 Do You Have An Advance Directive? No Information not available 01/29/2023 What Is Your Level Of Alcohol Consumption? None [email or web address] Information not available 12/29/2024 If You Are , What Was Your Level Of Alcohol Consumption Prior To ? Occasional [email or web address] Information not available 12/29/2024 How Many Years [...] Or The Highest Degree You Have Received? 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 No Information not available 01/29/2023 Have You Ever Been Counseled For Unhealthy Alcohol Use? No [email or web address] Information not available 10/06/2023 Do You Use [...] Anxious, Or Unable To Sleep At Night)? [id number] Information not available 01/29/2023 Do You Use [...] have difficulty walking or climbing stairs? No [email or web address] Information not available 10/06/2023 Are you able to walk? YESWOREST Information not available 01/29/2023 Are you able to care for yourself? Yes Information not available 10/06/2023 Do you have difficulty dressing or bathing? No [email or web address] Information not available 10/06/2023 What is your exercise level? Occasional Information not available 01/29/2023 Mental Status None recorded. Family History Relationship Description Onset Age of this Age Resolved Age Notes LastModified by Organization Details LastModified Time Mother Irma [email or web address] Not available 2023 11:33:57 Mother Irma [email or web address] Not available 2022 12:27:33 Maternal Grandfather Myocardial infarction Not available 01/29 15:02:53 Maternal Grandfather Heart disease Not available 2022 15:02:53 Father Hypercholest erolemia Not available 2022 15:02:53 Father Hypertensive disorder Not available 2022 15:02:53 Medical History Condition Response Allergies (Food, seasonal, environmental ) N Other N Breast Cancer N Drug/Latex Allergies/Reactions Y Blood Transfusion N Dermatologic Disorders N Lung Disease N [...] Flow (days) 4 0 Current Control Method Age at First Child 1 Are cycles [...] SNOMED-CT Code Diagnosis ICD10 Code Diagnosis Note [id number] Reshma Olea CNM [place] [address] [address] 12/29/2024 15:11:16 12/29/2024 15:47:54 Gestation period, 15 weeks 4352799 Z3A.15 [id number] Reshma Olea CNM [place] [address] [address] 01/24/2025 13:58:41 01/24/2025 15:01:08 Flank pain 468150947 R10.9 plan us if negative plan flexerilaw aiting results f/u ob appt as sheduled Health Concerns Section Related Observation LastModified by Organization Detai ls LastModified Time None Recorded Concern Status LastModified by Organization Details LastModified Time None Recorded Payers Encounter Date Sequence Insurance Name Policy Number Policy Servin Covered Member ID Servin Member ID Guarantor Name 01/24/2025 1 [place]: (PPO) [id number] Shelby Antunez [id number] Shelby Antunez Notes Date Note Type Note Provider Name and Address Organization Details Recorded Time 01/24/2025 text/html OB ProblemReport ed bypatient.Notes:+FHT , left flank pain, in ed, no us or meds except tylenol, hx stones Reshma Olea CNM [address], [place], [address], [facility] 01/24/2025 14:45:40 OBGyn Episode Ob Episode Information Episode Created Date Number of Fetuses Patient Bloodtype Patient rh Status Prepregnancy Weight lbs Domestic Partner Domestic Partner Phone Father Name Assembler Finger Buffs Status 12/09/19 25 1 B Positive 129 OPEN Fetus Data First Name Last Name Admitted to NICU Weight (g) Sex Living Outcome Pediatric Complications Fetus ID Race Codes Race Delivery Type [id number] Problems Problem Notes Problem Name Start Date End Date Resolution Snomed Code Not e -induced hypertension [id number] history of GHTN - Baseline labs at [...] Date Ultra Sound Latest Days Gestation 0 [email or web address] 12/08/2024 06/16/20 25 0 Pre- Flowsheet Flowsheet Date 12/08/2024 Saunders Score Blood Edema Fundus Height Fundus Units Glucose Ketones Leukocytes Nitrite Labor Signs Protein Cervic Dilation Cervic Effacement Cervic Station Type Weight in lbs Pre/Post Dialysis Refused Weight 129.70525244440 BP Diastolic BP Location Tested BP Systolic BP Type 74 L arm 122 sitting Fetus Heart Rate Present A Present Fetus Movement Comments Patient presents to [facility] care. Nausea somewhat controlled with zofran, does [...] Weight in lbs Pre/Post Dialysis Refused Weight 131.558029018971 BP Diastolic BP Location Tested BP Systolic BP Type 69 118 Fetus Heart Rate Present Fetus Movement A No Comments Patient is having some const ipation, pain, nausea and vomiting. doing well no FM yet, anterior placenta precautions and education reviewed f/u 4 weeks anatomy Flowsheet Date 01/24/2025 Saunders Score Blood Edema Fundus Height Fundus Units Glucose Ketones Leukocytes Nitrite Labor Signs Protein Cervic Dilation Cervic Effacement Cervic Station Type Weight in lbs Pre/Post Dialysis Refused Weight 138.508331959067 BP Diastolic BP Location Tested BP Systolic BP Type 69 114 Fetus Heart Rate Present Fetus Movement Comments Patient is having pelvic nils n and is here for ER follow up. Menstrual History Last Menstrual Date Menses Monthly On Bcp Conception Prior Menses Frequency Hcg Plus Date Menarche Onset Age Delivery Information Delivery Date Delivery Type Labor Anesthesia Weeks Gestation Incision Type Labor Labor Length Hrs Delivered By Post Complications Tubal Sterilization Discharge Date Comments Discharge Information Feeding Method Contraceptive Method Maternal HG B and HCT Levels
--- OUTSIDE RECORDS SUMMARY | 2025-01-24 14:08 | XMS_ITS | Encounter Summary ---
Author Organization [facility] Address [address] [place] [address] Phone Care Team Providers Care Cloth Shader Name Role Phone Lamar Alberts APRN, HEAD TRIMMER Unavailable Dusty Moody MD Unavailable [phone] Jennifer Zepeda APRN, HEAD TRIMMER Primary Care P rovider Reason for Visit * Reason Comments Medication Refill Encounter Details Date Type Department Care Team (Late st Contact Info) Description 02/18/2021 Refill [facility] - Primary Care - [place] [address] [place] [address] Peggy Brandon MD [address] [place] [address] Medication Refill Social History Tobacco [...] documented as of this encounter Care Teams Cloth Shader Relationship Specialty Start Date End Date Jennifer Zepeda APRN, HEAD TRIMMER [address] [place] [address] PCP - General Advanced Practice Nurse 04/25/20 Lamar Alberts APRN, HEAD TRIMMER [address] [place] [address] [address] [place] [address] Consulting Physician Family Medicine 08/03/18 Dusty Moody MD [address] [facility] [address] [place] [address] Consulting Physician Dermatology 08/03/18 documented as of this encounter
--- OUTSIDE RECORDS SUMMARY | 2025-01-24 14:08 | XMS_ITS | Referral Summary ---
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
--- OUTSIDE RECORDS SUMMARY | 2025-01-24 14:08 | XMS_ITS | Encounter Summary ---
Author Organization [facility] Address [address] [place] [address] Phone Care Team Providers Care Bacteriologist Pharmaceutical Name Role Phone Lamar Alberts APRN, DIGITAL MEDIA DIRECTOR Unavailable Dusty Moody MD Unavailable [phone] Jennifer Zepeda APRN, DIGITAL MEDIA DIRECTOR Primary Care P rovider Reason for Visit * Reason Comments Medication Refill Encounter Details Date Type Department Care Team (Late st Contact Info) Description 03/29/2021 Refill [facility] - Primary Care - [place] [address] [place] [address] Peggy Brandon MD [address] [place] [address] Medication Refill Social History Tobacco [...] documented as of this encounter Care Teams Bacteriologist Pharmaceutical Relationship Specialty Start Date End Date Jennifer Zepeda APRN, DIGITAL MEDIA DIRECTOR [address] [place] [address] PCP - General Advanced Practice Nurse 04/25/20 Lamar Alberts, SAMMIE, DIGITAL MEDIA DIRECTOR [address] [facility] [address] [place] [address] Consulting Physician Family Medicine 08/03/18 Dusty Moody MD [address] [facility] [address] [place] [address] Consulting Physician Dermatology 08/03/18 documented as of this encounter
--- OUTSIDE RECORDS SUMMARY | 2025-01-24 14:08 | XMS_ITS | Encounter Summary ---
Author Organization [facility] Address [address] [place] [address] Phone Care Team Providers Care Bridge Painter Name Role Phone Lamar Alberts APRN, CNP Unavailable Dusty Moody MD Unavailable [phone] Jennifer Zepeda APRN, CNP Primary Care P rovider Reason for Visit * Reason Comments Medication Refill Encounter Details Date Type Department Care Team (Late st Contact Info) Description 06/21/2020 Refill [facility] - Primary Care - [place] [address] [place] [address] Jennifer Zepeda APRN, CNP [address] [place] [address] Medication Refill Social History Tobacco [...] documented as of this encounter Care Teams Bridge Painter Relationship Specialty Start Date End Date Jennifer Zepeda APRN, GEOPHYSICAL MANAGER [address] [place] [address] PCP - General Advanced Practice Nurse 04/25/20 Lamar Alberts APRN, GEOPHYSICAL MANAGER [address] [facility] [address] [place] [address] Consulting Physician Family Medicine 08/03/18 Dusty Moody MD [address] [address] Consulting Physician Dermatology 08/03/18 documented as of this encounter
--- OUTSIDE RECORDS SUMMARY | 2025-01-24 14:08 | XMS_ITS | Encounter Summary ---
Author Organization [facility] Address [address] [place] [address] Phone Care Team Providers Care Wood Pile Driver Operator Name Role Phone Lamar Alberts APRN, CNP Unavailable Dusty Moody MD Unavailable [phone] Jennifer Zepeda APRN, CNP Primary Care P rovider Reason for Visit * Reason Comments Medication Refill Encounter Details Date Type Department Care Team (Late st Contact Info) Description 05/19/2020 Refill [facility] - Primary Care - [place] [address] [place] [address] Jennifer Zepeda APRN, CNP [address] [place] [address] Medication Refill Social History Tobacco [...] Primary Care Arlene Galvan February, Upcoming Appointments COOLER DELIVERER - Recent and Past Visits Recent Visits Date Type Provider Dept 04/25/20 Office Visit Jennifer Zepeda, COCOA BEAN CLEANER, FORENSIC PSYCHOLOGIST [facility] Showing recent visits within past 460 days [...] documented as of this encounter Care Teams Wood Pile Driver Operator Relationship Specialty Start Date End Date HuJennifer lance APRN, FORENSIC PSYCHOLOGIST [address] [place] [address] PCP - General Advanced Practice Nurse 04/25/20 Lamar Alberts APRN, FORENSIC PSYCHOLOGIST [address] [facility] [address] [place] [address] Consulting Physician Family Medicine 08/03/18 Dusty Moody MD [address] [facility] [address] [place] [address] Consulting Physician Dermatology 08/03/18 documented as of this encounter
--- OUTSIDE RECORDS SUMMARY | 2025-01-24 14:08 | XMS_ITS | Clinical Summary ---
Author Organization [facility] Address [address] [place] [address] Phone Care Team Providers Care Forex Trader Name Role Phone Lamar Alberts APRN, REVENUE STAMPER Unavailable [phone] Dusty Moody MD Unavailable [phone] Jennifer Zepeda APRN, REVENUE STAMPER Primary Care P rovider Allergies Active Allergy [...] mouth daily. 90 Tablet 1 03/11/2022 Active Jybnibeg-Agk-Dh- FA ( 1 + IRON PO) Active [...] 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, MEDICAL TECHNOLOGIST, SANDRA) 12/14/2022 Sexually Active Control Partners Comments [...] Priority Date/Time Associated Diagnosis Comments PATHOLOGY CYTOLOGY LEAD CUSTODIAN 01/29/2023 12:00 AM CDT from Last 3 Months or Most Recently Relevant to Health Maintenance Results * PATHOLOGY CYTOLOGY LEAD CUSTODIAN (01/29/2023 12:00 AM CDT) 01/29/2023 us Provider Scan PATHOLOGY/CYTOLOGY ORDERABLES Fi nal Result SCAN from Last 3 Months or Most Recently Relevant to Health Maintenance Insurance MEDICAID AETNA [facility] Care Teams Forex Trader Relationship Specialty Start Date End Date Jennifer Zepeda APRN, REVENUE STAMPER [address] [place] [address] PCP - General Advanced Practice Nurse 04/25/20 Lamar Alberts APRN, REVENUE STAMPER [address] [facility] [address] [place] [address] Consulting Physician Family Medicine 08/03/18 Dusty Moody MD [address] [facility] [address] [place] [address] Consulting Physician Dermatology 08/03/18
== END 2025-01-24 13:56 | disposition home or self-care (01) ==
PROVIDERS: PCP Advanced Practice Midwife; Visit Provider Advanced Practice Midwife
DX: R10.9 Unspecified abdominal pain (principal)
CPT/HCPCS: 76775

== ENCOUNTER 2025-05-28 15:33 | Outpatient (CLI) | payer BC, SELFPAY ==
[2025-05-28] VITALS (9 sets, daily range): BP systolic 123–127; BP diastolic 68–69; PULSE 69–77; O2SAT 98–100
--- OUTSIDE RECORDS SUMMARY | 2025-05-28 15:40 | XMS_ITS | Encounter Summary ---
Author Organization [facility] Address [address] [place] [address] Phone Care Team Providers Care Human Geography Instructor Name Role Phone Lamar Alberts APRN, OTF Unavailable Dusty Moody MD Unavailable [phone] Jennifer Zepeda APRN, SOURCING ASSOCIATE Primary Care P rovider Reason for Visit * Reason Comments Medication Refill Encounter Details Date Type Department Care Team (Late st Contact Info) Description 02/18/2021 Refill [facility] - Primary Care - Mae [address] [place] [address] Peggy Brandon MD [address] [place] [address] Medication Refill Social History Tobacco [...] documented as of this encounter Care Teams Human Geography Instructor Relationship Specialty Start Date End Date Jennifer Zepeda APRN, SOURCING ASSOCIATE [address] [place] [address] PCP - General Advanced Practice Nurse 04/25/20 Lamar Alberts APRN, SOURCING ASSOCIATE [address] [place] [address] [address] [place] [address] Consulting Physician Family Medicine 08/03/18 Dusty Moody MD [address] [facility] [address] [place] [address] Consulting Physician Dermatology 08/03/18 documented as of this encounter
--- OUTSIDE RECORDS SUMMARY | 2025-05-28 15:40 | XMS_ITS | Encounter Summary ---
Author Organization [facility] Address [address] [place] [address] Phone Care Team Providers Care Spreader Name Role Phone Lamar Alberts APRN, CNP Unavailable Dusty Moody MD Unavailable [phone] Jennifer Zepeda APRN, CNP Primary Care P rovider Reason for Visit * Reason Comments Medication Refill Encounter Details Date Type Department Care Team (Late st Contact Info) Description 06/21/2020 Refill [facility] - Primary Care - [place] G [address] [place] [address] Jennifer Zepeda APRN, CNP [address] [place] [address] Medication Refill Social History Tobacco [...] documented as of this encounter Care Teams Spreader Relationship Specialty Start Date End Date Jennifer Zepeda APRN, HISTORICAL SOCIETY DIRECTOR [address] [place] [address] PCP - General Advanced Practice Nurse 04/25/20 Lamar Alberts APRN, HISTORICAL SOCIETY DIRECTOR [address] [facility] [address] [place] [address] Consulting Physician Family Medicine 08/03/18 Dusty Moody MD [address] [address] Consulting Physician Dermatology 08/03/18 documented as of this encounter
--- OUTSIDE RECORDS SUMMARY | 2025-05-28 15:40 | XMS_ITS | Clinical Summary ---
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 Gender Identity Not on file Sexual Orientation Not on file Obstetrics History Plan of Treatment Health Maintenance Due Date Last Done Comments Cervical Cancer Screening 1995 Depression Screening 1995 Hepatitis C Screening 1995 Pneumococcal vaccine <65 (2 of 2 - PCV) 11/14/2010 11/14/2009 Hepatitis B Screening 2013 Regular Well Visit/Exam 18-64 2013 HPV Vaccines (1 - 3-dose SCD M series) 2022 Covid-19 Vaccine (3 - 2023-2 5 season) 2024 10/25/2021, 09/26/2021 Influenza Vaccine (#1) 2025 , 07/27/2018, 06/29/2009, Additional history exists DTaP/Tdap/Td Vaccine (8 - Td or Tdap) 08/12/2031 08/12/2021, 11/14/2009, 03/04/2001, Additional history exists Varicella Vaccines Completed 2021, 08/16/1996 Insurance testhub OOS testhub OOS Care Teams Trading Specialist Relationship Specialty Start Date End Date Anjali Olea MD PCP - General 11/19/10
--- OUTSIDE RECORDS SUMMARY | 2025-05-28 15:40 | XMS_ITS | Encounter Summary ---
Author Organization [facility] Address [address] [place] [address] Phone Care Team Providers Care Dental Hygiene Instructor Name Role Phone Lamar Alberts APRN, OTF Unavailable Dusty Moody MD Unavailable [phone] Jennifer Zepeda APRN, SWITCHMAN Primary Care P rovider Reason for Visit * Reason Comments Medication Refill Encounter Details Date Type Department Care Team (Late st Contact Info) Description 03/29/2021 Refill [facility] - Primary Care - [place] [address] [place] [address] Peggy Brandon MD [address] [place] [address] Medication Refill Social History Tobacco [...] documented as of this encounter Care Teams Dental Hygiene Instructor Relationship Specialty Start Date End Date Jennifer Zepeda APRN, SWITCHMAN [address] [place] [address] PCP - General Advanced Practice Nurse 04/25/20 Lamar Alberts, SAMMIE, SWITCHMAN [address] [facility] [address] [place] [address] Consulting Physician Family Medicine 08/03/18 Dusty Moody MD [address] [facility] [address] [place] [address] Consulting Physician Dermatology 08/03/18 documented as of this encounter
--- OUTSIDE RECORDS SUMMARY | 2025-05-28 15:40 | XMS_ITS | Clinical Summary ---
Author Organization [facility] Address [address] [place] [address] Phone Care Team Providers Care Blueprint Cutter Name Role Phone Lamar Alberts APRN, AUTOMATIC BOW MAKER MACHINE TENDER Unavailable Dusty Moody MD Unavailable [phone] Jennifer Zepeda APRN, AUTOMATIC BOW MAKER MACHINE TENDER Primary Care P rovider Allergies Active Allergy [...] mouth daily. 90 Tablet 1 03/11/2022 Active Qorcrxbp-Vmx-Or- FA ( 1 + IRON PO) Active Probiotic Product (PROBIOTIC PO) Take by mouth. Active Active Problems Problem Noted Date Diagnosed Date Ganglion, right wrist 08/24/2018 History of ovarian cyst 08/03/2018 Immunizations Immunization Administration Dates Next Due DTAP VACCINE 03/04/2001, 7,02/16/1996,1995,1995 Hib Vaccine,unspecified Formulation 02/1997,02/16/1996,1995,1995 Influenza Vaccine 06/29/2009 Influenza Vaccine greater than 3 yrs 07/27/2018 Influenza Vaccine, Quadrivalent, PF 08/12/2021 Influenza, Seasonal, Injecta ble, Undefined 06/29/2009 MMR Vaccine 03/04/2001,08/16/1996 OPV 02/16/1996,1995,1995 Pneumococcal Vaccine Adult - 23 Valent 11/14/2009 TB Skin Test 08/12/2021 TD VACCINE 08/12/2021 TDAP Vaccine 05/15/2025,11/14/2009 Varicella Vaccine Live 2021,08/16/1996 Family History Medical [...] 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, WET AND DRY SUGAR BIN OPERATOR, SANDRA) 12/14/2022 Sexually Active Control Partners Comments [...] 3:55 PM CDT Height 165.1 cm (5' 5) 12/18/2022 3:55 PM CDT Body Mass Index 22.8 12/18/2022 3:55 PM CDT Plan of Treatment Health Maintenance Due Date Last Done Comments Hepatitis B Immunization (1 of 3 - 19+ 3-dose series) 2014 Human Papillomavirus (HPV) Immunization (1 - 3-dose SCDM series) 2022 Influenza Immunization (#1) 05/21/202507/22, 07/27/2018, 06/29/2009, Additional history exists SARS-COV-2 Immunization ( - 2024- season) 2025 10/25/2021, 09/26/2021 Pap Smear 01/29/2026 01/29/2023 DTaP/Tdap/Td Immunization (9 - Td or Tdap) 05/15/2035 05/15/2025, 08/12/2021, 11/14/2009, Additional history exists Respiratory Syncytial Virus (RSV) Immunization (Adult) (1 - 1-dose 75+ series) 2070 Pneumococcal Immunization Combined Aged Out 11/14/2009 No longer eligible based on patient's age to complete this topic Hepatitis C Virus (HCV) Screening Completed 12/04/2024 Meningococcal Immunization (ACWY) Aged Out No longer eligible based on patient's age to complete this topic Rotavirus Immunization Aged Out No lo nger eligible based on patient's age to complete this topic Procedures Procedure Name Priority Date/Time Associated Diagnosis Comments PATHOLOGY CYTOLOGY AUTOMOTIVE GENERAL MANAGER 01/29/2023 12:00 AM CDT from Last 3 Months or Most Recently Relevant to Health Maintenance Results * PATHOLOGY CYTOLOGY AUTOMOTIVE GENERAL MANAGER (01/29/2023 12:00 AM CDT) 01/29/2023 us Provider Scan PATHOLOGY/CYTOLOGY ORDERABLES Fi nal Result SCAN from Last 3 Months or Most Recently Relevant to Health Maintenance Insurance MEDICAID [facility]NA [facility] Care Teams Blueprint Cutter Relationship Specialty Start Date End Date Jennifer Zepeda APRN, AUTOMATIC BOW MAKER MACHINE TENDER [address] [place] [address] PCP - General Advanced Practice Nurse 04/25/20 Lamar Alberts APRN, AUTOMATIC BOW MAKER MACHINE TENDER [address] [place] [address] [address] [place] [address] Consulting Physician Family Medicine 08/03/18 Dusty Moody MD [address] [facility] [address] [place] [address] Consulting Physician Dermatology 08/03/18
[2025-05-28 16:47] LABS: OBXCEM ROM Plus Negative (Negative)
== END 2025-05-28 16:28 | disposition home or self-care (01) ==
LOC: ANHOBOP 15:37 → ANHOBPP 15:38
PROVIDERS: Visit Provider Advanced Practice Midwife
DX: O42.90 Premature rupture of membranes, unspecified as to length of time between rupture and onset of labor, unspecified weeks of gestation (principal); Z3A.00 Weeks of gestation of pregnancy not specified
CPT/HCPCS: 59025; 84112; 99199

== ENCOUNTER 2025-06-03 13:21 | Inpatient (IN) | payer BC, SELFPAY ==
[2025-06-03] VITALS (102 sets, daily range): BP systolic 112–153; BP diastolic 35–97; PULSE 65–113; RESP 16; TEMP 36.1–37.1; O2SAT 91–100; BMI 27.8
--- NOTE | 2025-06-03 13:21 | LDADM ---
This patient, Shelby Antunez, was admitted to Labor/Delivery/Recovery 105 on 06/03/25 at 13:21. Plans for labor, pain management and were discussed with patient. Patient/family oriented to hospital policies and general routines including ID bracelet, bed and alarms, visiting hours, pain management, procedures, bathroom and other care routines, personal items, smoking policy, room service/diet and guest tray routines, security routines, and visiting hours. Patient/Family are encouraged to report perceived risks to care and to ask questions if they do not understand what they are told or what they should do. See OBIX for further documentation.
--- OUTSIDE RECORDS SUMMARY | 2025-06-03 14:32 | XMS_ITS | Encounter Summary ---
Author Organization [facility] Address [address] [place] [address] Phone Care Team Providers Care Operations Logistics Analyst Name Role Phone Lamar Alberts APRN, CNP Unavailable Dusty Moody MD Unavailable [phone] Jennifer Zepeda APRN, CNP Primary Care P rovider Reason for Visit * Reason Comments Medication Refill Encounter Details Date Type Department Care Team (Late st Contact Info) Description 06/21/2020 Refill [facility] - Primary Care - [place] [address] [place] [address] Jennifer Zepeda APRN, CNP [address] [place] [address] Medication Refill Social History Tobacco [...] documented as of this encounter Care Teams Operations Logistics Analyst Relationship Specialty Start Date End Date Jennifer Zepeda APRN, BINGO ATTENDANT [address] [place] [address] PCP - General Advanced Practice Nurse 04/25/20 Lamar Alberts APRN, BINGO ATTENDANT 4 [facility] [address] [place] [address] Consulting Physician Family Medicine 08/03/18 Dusty Moody MD [address] [address] Consulting Physician Dermatology 08/03/18 documented as of this encounter
--- OUTSIDE RECORDS SUMMARY | 2025-06-03 14:32 | XMS_ITS | Encounter Summary ---
Author Organization [facility] Address [address] [place] [address] Phone Care Team Providers Care Foundation Drill Operator Name Role Phone Lamar Alberts APRN, OTF Unavailable Dusty Moody MD Unavailable [phone] Jennifer Zepeda APRN, FLOW TRADER Primary Care P rovider Reason for Visit * Reason Comments Medication Refill Encounter Details Date Type Department Care Team (Late st Contact Info) Description 03/29/2021 Refill [facility] - Primary Care - [place] [address] [place] [address] Peggy Brandon MD [address] [place] [address] Medication Refill Social History Tobacco [...] documented as of this encounter Care Teams Foundation Drill Operator Relationship Specialty Start Date End Date Jennifer Zepeda APRN, FLOW TRADER [address] [place] [address] PCP - General Advanced Practice Nurse 04/25/20 Lamar Alberts, SAMMIE, FLOW TRADER 4 [facility] [address] [place] [address] Consulting Physician Family Medicine 08/03/18 Dusty Moody MD [address] [facility] [address] [place] [address] Consulting Physician Dermatology 08/03/18 documented as of this encounter
--- OUTSIDE RECORDS SUMMARY | 2025-06-03 14:32 | XMS_ITS | Clinical Summary ---
Author Organization [facility] Address [address] [place] [address] Phone Care Team Providers Care Charging Plug Placer Name Role Phone Lamar Alberts APRN, DRUG COORDINATOR Unavailable Dusty Moody MD Unavailable [phone] Jennifer Zepeda APRN, DRUG COORDINATOR Primary Care P rovider Allergies Active Allergy [...] mouth daily. 90 Tablet 1 03/11/2022 Active Rfypszwh-Tae-We- FA ( 1 + IRON PO) Active [...] 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, NAME PLATE STAMPER, SANDRA) 12/14/2022 Sexually Active Control Partners Comments [...] Priority Date/Time Associated Diagnosis Comments PATHOLOGY CYTOLOGY ELECTRICAL ENGINEERING TEACHER 01/29/2023 12:00 AM CDT from Last 3 Months or Most Recently Relevant to Health Maintenance Results * PATHOLOGY CYTOLOGY ELECTRICAL ENGINEERING TEACHER (01/29/2023 12:00 AM CDT) 01/29/2023 us Provider Scan PATHOLOGY/CYTOLOGY ORDERABLES Fi nal Result SCAN from Last 3 Months or Most Recently Relevant to Health Maintenance Insurance MEDICAID AETNA [facility] Care Teams Charging Plug Placer Relationship Specialty Start Date End Date Jennifer Zepeda APRN, DRUG COORDINATOR [address] [place] [address] PCP - General Advanced Practice Nurse 04/25/20 Lamar Alberts APRN, DRUG COORDINATOR [address] [place] [address] [address] [place] [address] Consulting Physician Family Medicine 08/03/18 Dusty Moody MD [address] [facility] [address] [place] [address] Consulting Physician Dermatology 08/03/18
--- OUTSIDE RECORDS SUMMARY | 2025-06-03 14:32 | XMS_ITS | Clinical Summary ---
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
--- OUTSIDE RECORDS SUMMARY | 2025-06-03 14:32 | XMS_ITS | Encounter Summary ---
Author Organization [facility] Address [address] [place] [address] Phone Care Team Providers Care Intelligence Analyst Name Role Phone Lamar Alberts APRN, OTF Unavailable Dusty Moody MD Unavailable [phone] Jennifer Zepeda APRN, CLINICAL STAFF PHARMACIST Primary Care P rovider Reason for Visit * Reason Comments Medication Refill Encounter Details Date Type Department Care Team (Late st Contact Info) Description 02/18/2021 Refill [facility] - Primary Care - Mae [address] [place] [address] Peggy Brandon MD [address] [place] [address] Medication Refill Social History Tobacco [...] documented as of this encounter Care Teams Intelligence Analyst Relationship Specialty Start Date End Date Jennifer Zepeda APRN, CLINICAL STAFF PHARMACIST [address] [place] [address] PCP - General Advanced Practice Nurse 04/25/20 Lamar Alberts APRN, CLINICAL STAFF PHARMACIST [address] [place] [address] [address] [place] [address] Consulting Physician Family Medicine 08/03/18 Dusty Moody MD [address] [facility] [address] [place] [address] Consulting Physician Dermatology 08/03/18 documented as of this encounter
[2025-06-03] MEDS: LACTATED RINGERS 1,000 ML 125 ML IV CONT ×2 (14:55→17:20)
[2025-06-03 15:00] LABS: Hematocrit 42.2 % (37.0-47.0); Hemoglobin 13.8 g/dL (12.0-15.0); Immature Granulocyte Percent A 0.8 % (0-0.5); Immature Platelet Fraction Pct 12.4 % (0.9-11.2); Lymphocytes Absolute Auto 2.34 K/mm3 (0.9-3.2); Mean Corpuscular HGB Conc 32.7 g/dl (32-36); Mean Corpuscular Hemoglobin 29.4 pg (26-34); Mean Corpuscular Volume 89.8 fl (80-100); Nucleated Red Blood Cells Absolute Auto 0.000 K/mm3 (0.0-0.012); Nucleated Red Blood Cells Perc 0.0 % (0.0-0.2); Platelet Count Result 154 k/mm3 (150-375); Red Blood Count 4.70 M/mm3 (4.2-5.4); White Blood Count 12.7 K/mm3 (4.5-10.0)
[2025-06-03 15:08] LABS: Alanine Aminotransferase 14 U/L (6-35); Albumin Level 4.4 g/dL (3.5-5.1); Alkaline Phosphatase 184 U/L (38-126); Anion Gap 11 mmol/L (4-12); Aspartate Amino Transferase 29 U/L (14-36); Bilirubin,Total 0.4 mg/dL (0.2-1.3); Blood Urea Nitrogen 11 mg/dL (7-17); Calcium 10.2 mg/dL (8.4-10.2); Carbon Dioxide 20 mmol/L (22-30); Chloride 103 mmol/L (98-107); Estimated Glomerular Filt Rate > 60; Glucose 89 mg/dL (65-110); Potassium 3.8 mmol/L (3.4-5.0); Sodium 134 mmol/L (137-145); Total Protein 8.4 g/dL (6.3-8.2); Uric Acid 4.9 mg/dL (2.5-7.5)
--- NOTE | 2025-06-03 15:13 | WPDOBADMIT ---
Obstetrics - Admit Note Admission Note: record reviewed. No pertinent additions to the history and/or any subsequent changes in the physical findings that are not consistent with the expected course of the were found. Additions to the history and/or subsequent changes in the physical findings follow. Admit in labor, anticipate vaginal delivery
--- NOTE | 2025-06-03 15:44 | P.PNAN_ITS ---
Anes - Initial Pre Proc Eval Procedure: labor epidural Date/Time: 06/03/25 15:44 Surgeon: Jerome Velez MD Pre Op Diagnosis: labor pain Pre Op Diagnosis: Contractions Patient Data Age: 29 Gender: F Height: 1.68 m Weight: 78.25 kg Last Vital Signs Temp 36.1 C L 06/03/25 13:29 Pulse 91 06/03/25 15:16 BP 153/79 H 06/03/25 15:16 Pulse Ox 100 06/03/25 15:43 O2 Del Method Room Air 06/03/25 15:15 Allergies Allergy/AdvReac Type Severity Reaction Status Date / Time gold Au 198 Allergy Itching Verified 06/01/25 13:54 Sulfa (Sulfonamide Allergy Hives Verified 06/01/25 13:54 Antibiotics) Paraphenylenediamine (PPD) Allergy Itching Uncoded 01/23/25 21:42 Home Medications ?Medication ?Instructions ?Recorded ?Confirmed ?Type prenat.vits,gilles,fij-rwtg-ohfwg 1 tablet PO HS 10/09/23 06/03/25 History aspirin 81 mg tablet 81 mg PO ONCE 06/01/2506/03 History docusate sodium 100 mg capsule 300 mg PO DAILY 5 06/03/25 History (Colace) ondansetron 8 mg disintegrating mg 06/01/25 History tablet sertraline 25 mg tablet mg 06/01/25 History Laboratory Tests 06/03/25 06/03/25 14:53 14:53 WBC 12.7 H K/mm3 (4.5-10.0) RBC 4.70 M/mm3 (4.2-5.4) Hgb 13.8 g/dL (12.0-15.0) Hct 42.2 % (37.0-47.0) MCV 89.8 fl (80-100) MCH 29.4 pg (26-34) MCHC 32.7 g/dl (32-36) RDW 13.1 % (11.5-14.5) Plt Count 154 k/mm3 (150-375) MPV 12.1 H fl (7.4-10.4) Immature Gran % (Auto) 0.8 H % (0-0.5) Neut % (Auto) 75.3 H % (45.5-73.1) Lymph % (Auto) 18.4 % (18.3-44.2) [place] % (Auto) 4.6 % (2.6-8.5) Eos % (Auto) 0.6 % (0-4.4) Baso % (Auto) 0.3 % (0.2-1.2) Lymph # (Auto) 2.34 K/mm3 (0.9-3.2) [place] # (Auto) 0.6 K/mm3 (0.1-0.6) Eos # (Auto) 0.1 K/mm3 (0-0.3) Baso # (Auto) 0.0 K/mm3 (0.0-0.1) Abs Immat Gran (auto) 0.10 H K/mm3 (0.00-0.031) Absolute Neuts (auto) 9.6 H K/mm3 (1.3-6.7) Absolute Nucleated RBC 0.000 K/mm3 (0.0-0.012) Nucleated RBC % 0.0 % (0.0-0.2) % Immature Plt Fraction 12.4 H % (0.9-11.2) Sodium 134 L mmol/L (137-145) Potassium 3.8 mmol/L (3.4-5.0) Chloride 103 mmol/L (98-107) Carbon Dioxide 20 L mmol/L (22-30) Anion Gap 11 mmol/L (4-12) BUN 11 mg/dL (7-17) Creatinine 0.57 L mg/dL (0.7-1.0) Estim Creat Clear Calc Not Reportable Estimated GFR > 60 (59 - ) Glucose 89 mg/dL (65-110) Uric Acid Cancelled 4.9 mg/dL (2.5-7.5) Calcium 10.2 mg/dL (8.4-10.2) Total Bilirubin 0.4 mg/dL (0.2-1.3) AST 29 U/L (14-36) ALT 14 U/L (6-35) Alkaline Phosphatase 184 H U/L (38-126) Total Protein 8.4 H g/dL (6.3-8.2) Albumin 4.4 g/dL (3.5-5.1) Blood Type B Positive Antibody Screen Negative Patient hx anesthesia problems: none Family hx anesthesia problems: none Results Review: All pre-operative results and documents have been reviewed as part of the pre- operative evaluation. [facility] Family History Family History Grandparent Heart disease Social History Social History Smoking status: Never smoker Second hand tobacco smoke exposure: No Substance use: never Do You Feel Safe in your Home?: No Lack of Transportation: No Lack of Food: Never True Current Housing: I Have Housing Concerned About Future Housing: No Difficulty Paying Gas/Electric Bills: No Difficulty Paying for Meds: No Currently Unemployed: No Education: Master's Degree or Higher Difficulty w/ Childcare or Family Care: No Spiritual care concerns: No Anes - Eval Final PreProcedure Day of Procedure 06/03/25 15:44 Patient weight: overweight Heart: regular rate and rhythm Lungs: clear to auscultation and normal air movement Airway: Mallampati scale class II Neurological: alert and oriented ASA classification: II Emergent: no Anesthetic plan: proceed Anesthesia type and monitoring: regional epidural and standard monitoring Results Review: All pre-operative results and documents have been reviewed as part of the pre- operative evaluation. Informed Consent: The patient's anesthetic plan and its attendant risks and benefits were discussed with the patient/family/POA. Questions were solicited and answers provided to the satisfaction of the patient/family/POA.
[2025-06-03 15:46] LABS: Syphilis IgG/IgM Antibody Non-Reactive (Nonreactive)
[2025-06-03] MEDS: OXYTOCIN 30 UNITS/NS 500 ML 30 UNITS/500 ML BAG 999 UNITS IV CONT (18:08)
--- NOTE | 2025-06-03 18:19 | PM.OBPRVD ---
OB - Vaginal Delivery Note Procedure Delivery date: 06/03/25 Intrapartal Events: Decelerations Delivery augmentation: Rupture of Membranes Delivery monitor: External FHT and External Uterine Route of delivery: Episiotomy description: None Laceration Description: None Specimen: No Quantitative Blood Loss (ml): 325 Anesthesia type: Epidural Disposition: Floor Complications: No immediate complications [place] Baby Date of : 06/03/25 Time of : 18:04 Gestational Age by Date: 38 Infant gender: Male presentation: vertex position: Left Occiput Anterior Placenta delivery description: Spontaneous Cord Vessel Description: 3 Vessels and Delayed Cord Clamping score one minute: 8 score five minutes: 9
[2025-06-03] MEDS: OXYTOCIN 30 UNITS/NS 500 ML 30 UNITS/500 ML BAG 125 UNITS IV CONT (18:45)
[2025-06-03] MEDS: WITCH HAZEL 40 PADS 1 PAD TOPICAL (19:15)
[2025-06-03] MEDS: IBUPROFEN 600 MG TABLET PO (19:15)
[2025-06-03] MEDS: BENZOCAINE 20% AER SPR (*SP) 56 GM CAN 1 SPRAY TOPICAL (19:15)
[2025-06-03] MEDS: TRANEXAMIC ACID 1,000MG/ISO100 1,000 MG/100 ML BAG 200 MG IVPB (19:30)
[2025-06-03] MEDS: SERTRALINE HCL 25 MG TABLET PO (21:45)
[2025-06-04 00:25] VITALS: BP 127/88; PULSE 72; RESP 16; TEMP 37.4; O2SAT 97
--- NOTE | 2025-06-04 01:41 | PHAR ---
HOME MEDICATION: SERTRALINE 25 MG TABLET, TAKE 1 TABLET BY MOUTH ONCE DAILY, VERIFIED IN PHARMACY 06/04 @ 0142. [place]
--- NOTE | 2025-06-04 01:58 | OBPPTRN ---
06/03/2025 at 2130 Patient, support person, and baby transferred to post room #287. Patient and her significant other were oriented to unit, room, information board, rooming in, admission packet and security measures. Patient and her significant other verbalizes understanding.
[2025-06-04 03:30] VITALS: BP 126/53; PULSE 72; RESP 16; TEMP 37.1; O2SAT 98
[2025-06-04] MEDS: IBUPROFEN 600 MG TABLET PO ×2 (04:20→13:14)
[2025-06-04 05:38] LABS: Hematocrit 35.8 % (37.0-47.0); Hemoglobin 12.0 g/dL (12.0-15.0)
--- NOTE | 2025-06-04 06:08 | P.PNOB_ITS ---
OB - PN: Subj Subjective Date/time seen: 06/04/25 06:08 Interval history: pp day 1 doing well would like d/c home OB - PN: Obj Data Labs 06/04/25 05:30 06/03/25 14:53 Labs: Laboratory Results - last 24 hr 06/03/25 06/03/25 06/04/25 14:53 14:53 05:30 WBC 12.7 H RBC 4.70 Hgb 13.8 12.0 Hct 42.2 35.8 L MCV 89.8 MCH 29.4 MCHC 32.7 RDW 13.1 Plt Count 154 MPV 12.1 H Immature Gran % (Auto) 0.8 H Neut % (Auto) 75.3 H Lymph % (Auto) 18.4 [place] % (Auto) 4.6 Eos % (Auto) 0.6 Baso % (Auto) 0.3 Lymph # (Auto) 2.34 [place] # (Auto) 0.6 Eos # (Auto) 0.1 Baso # (Auto) 0.0 Abs Immat Gran (auto) 0.10 H Absolute Neuts (auto) 9.6 H Absolute Nucleated RBC 0.000 Nucleated RBC % 0.0 % Immature Plt Fraction 12.4 H Sodium 134 L Potassium 3.8 Chloride 103 Carbon Dioxide 20 L Anion Gap 11 BUN 11 Creatinine 0.57 L Estim Creat Clear Calc Not Reportable Estimated GFR > 60 Glucose 89 Uric Acid Cancelled 4.9 Calcium 10.2 Total Bilirubin 0.4 AST 29 ALT 14 Alkaline Phosphatase 184 H Total Protein 8.4 H Albumin 4.4 Syphilis IgG/IgM Ab Non-reactive Blood Type B Positive Antibody Screen Negative OB - PN A/P Plan day: 1 Plan: routine care and discharge home Time Spent With Patient Time: Total time spent is greater than 50% in coordination of care (as documented) at patient's floor/unit and/or counseling patient: Review of Systems 2 Review of Systems: All systems reviewed & are unremarkable except as noted in HPI and below Exam 2 Const: General: cooperative and healthy appearing Chest: Chest palpation & inspection: normal inspection of the chest Cardio: Rate: regular rate GI: Other: soft Back/Spine/Pelvis: Back: no CVA tenderness
--- NOTE | 2025-06-04 06:10 | PM.OBDSVD ---
DS: Admitting Diagnosis Discharge Date 06/04/25 Admitting Diagnosis labor DS: Discharge Diagnosis Discharge Diagnosis (1) Vaginal delivery: Code(s): O80 - Encounter for full-term uncomplicated delivery Status: Acute OB - DS: Summary OB Procedures : None OB Procedures Intrapartum: Spontaneous Vag Delivery OB Procedures: : None Peripartum Data Laceration Description: None Episiotomy description: None Time Spent with Patient Time attestation: Total time spent providing and/or coordinating discharge services: DS: Data Data Completed and Pending Labs on day of discharge: Labs from last 24 hours 06/04/25 06/03/25 06/03/25 05:30 14:53 14:53 WBC 12.7 H RBC 4.70 Hgb 12.0 13.8 Hct 35.8 L 42.2 MCV 89.8 MCH 29.4 MCHC 32.7 RDW 13.1 Plt Count 154 MPV 12.1 H Immature Gran % (Auto) 0.8 H Neut % (Auto) 75.3 H Lymph % (Auto) 18.4 [place] % (Auto) 4.6 Eos % (Auto) 0.6 Baso % (Auto) 0.3 Lymph # (Auto) 2.34 [place] # (Auto) 0.6 Eos # (Auto) 0.1 Baso # (Auto) 0.0 Abs Immat Gran (auto) 0.10 H Absolute Neuts (auto) 9.6 H Absolute Nucleated RBC 0.000 Nucleated RBC % 0.0 % Immature Plt Fraction 12.4 H Sodium 134 L Potassium 3.8 Chloride 103 Carbon Dioxide 20 L Anion Gap 11 BUN 11 Creatinine 0.57 L Estim Creat Clear Calc Not Reportable Estimated GFR > 60 Glucose 89 Uric Acid 4.9 Cancelled Calcium 10.2 Total Bilirubin 0.4 AST 29 ALT 14 Alkaline Phosphatase 184 H Total Protein 8.4 H Albumin 4.4 Syphilis IgG/IgM Ab Non-reactive Blood Type B Positive Antibody Screen Negative Discharge Plan Discharge Attending physician on discharge: Jerome Velez Consulting providers: Reshma Olea Discharging Clinician: Reshma Olea Patient Disposition: Home Activity: pelvic rest Diet: regular Patient Instructions: Antibiotic Form Patient Language: Bolivian Stand Alone Forms: General Discharge Information Follow-up/Referrals: Reshma Olea CNM [Certified Nurse Color Drum Worker, COUNTERINTELLIGENCE SPECIALIST] - 4 Weeks Discharge Medications: Continued prenat.vits,gilles,uwx-ikix-ilmle Tablet 1 tablet PO HS sertraline 25 mg tablet 25 mg PO HS docusate sodium [Colace] 100 mg capsule 300 mg PO DAILY ondansetron 8 mg tablet,disintegrating Discontinued aspirin 81 mg tablet 81 mg PO ONCE Date of admission: 06/03/25 13:21 Primary Care Provider: UNKNOWN,DOCTOR Admitting Provider: Jerome Velez Attending physician on admission: Jerome Velez Condition: Stable
[2025-06-04 07:25] VITALS: BP 117/57; PULSE 68; RESP 18; TEMP 36.8
[2025-06-04] MEDS: MULTIVIT/MIN/PREN/FOL AC/IRON TABLET 1 TAB PO (07:26)
[2025-06-04] MEDS: DOCUSATE SODIUM 100 MG CAPSULE PO (07:28)
[2025-06-04] MEDS: ACETAMINOPHEN 325 MG TABLET 650 MG PO (07:28)
[2025-06-04] MEDS: WITCH HAZEL 40 PADS 1 PAD TOPICAL (07:31)
--- NOTE | 2025-06-04 07:50 | PC.NURSE ---
Mother verbalizes she is able to independently latch with appropriate positioning and alignment. She denies any nipple discomfort and is responsively . Optimal latch observed at this time. is currently meeting outcomes for weight, output, jaundice, blood sugar and feeding frequencies of 8-12 times in 24 hours. Mother declines any additional assistance or education at this time. Mother is encouraged to call for assistance if her doesn?t latch, pain with latching, questions or concerns. Mother voiced understanding of information shared along with the mom/baby guide for an additional resource. Reported to the Primary RN.
[2025-06-04 11:58] VITALS: BP 139/69; PULSE 70; RESP 16; TEMP 37.1; O2SAT 98
--- NOTE | 2025-06-04 14:30 | PC.NURSE ---
Patient called out for assistance. Baby was just circumcised and is very sleepy. Mom has him undressed and skin to skin but he does not give any feeding cues. We moved him away from mom and went to the left breast, he did open his eyes and attempt to latch a few times, but never sustained a latch or suckled. Mom handles her breast and baby well. Reviewed expected infant behavior after receiving Tylenol and that baby may be sleepy for several hours. Mom is going to change a diaper and then try to latch again. Primary RN notified that no feeding was able to be completed at this time.
[2025-06-06 08:39] VITALS: BP 127/78; PULSE 71; RESP 18; TEMP 36.8; O2SAT 100
== END 2025-06-04 21:20 | disposition home or self-care (01) | DRG 807 ==
LOC: ANHLDR 14:30 → ANHOB2 22:05
PROVIDERS: Advanced Practice Midwife; Admitting Provider Obstetrics & Gynecology; Visit Provider Obstetrics & Gynecology
DX: O36.8330 Maternal care for abnormalities of the fetal heart rate or rhythm, third trimester, not applicable or unspecified (principal); Z37.0 Single live birth; Z3A.38 38 weeks gestation of pregnancy
CPT/HCPCS: 36415; 80053; 84550; 85014; 85018; 85025; 85055; 86593; 86850; 86900; 86901; A9270; J2590; J2795; J7120